=== PATIENT | male | born 1945 | race Caucasian/White ===

== ENCOUNTER → 2017-07-14 | Outpatient (CLI) | payer MEDICARE ==
--- NOTE | 2017-07-14 13:32 | CT ---
EXAMINATION TYPE: CT lumbar spine wo con DATE OF EXAM: 07/14/2017 COMPARISON: 06/11/2015 HISTORY: Low back pain CT DLP: 1000.[address] of the lumbar spine was performed. Bone and soft tissue window settings are submitted as well as coronal and sagittal reconstructions. L1-L2: Mild vacuum changes seen. Ventral spondylosis. No significant disc bulge. No herniation or tutu tral stenosis. L2-L3: Normal disc space height. No disc herniation protrusion or central stenosis. No facet joint arthropathy. No evidence for foraminal encroachment. L3-L4: Moderate degenerative disc space narrowing. Circumferential disc bulge greatest posteriorly. E ffacement of the ventral thecal sac. Mild central stenosis identified. Mild bilateral foraminal encro achment. L4-L5: Vacuum disc noted. Moderate subligamentous broad-based disc herniation. Effacement of the vent ral thecal sac with hypertrophy of the ligamentum flavum and facet joint arthropathy contributing to moderate to severe central stenosis. Bilateral foraminal encroachment noted. L5-S1: Moderate degenerative disc space narrowing. Posterior disc bulge with partial encapsulating sp ur resulting in disc endplate complex. Mild effacement ventral thecal sac. No central stenosis or lat eral recess stenosis. Mild facet joint arthropathy. No paraspinal masses are identified. Lumbar segments are free if fracture. Bilateral nephrolithiasis . IMPRESSION: 1. Multilevel degenerative disc disease. 2. Moderate to severe central stenosis L4-5 with mild interval progression. 3. Mild central stenosis at L3-4. See above.
== END | disposition home or self-care (01) ==
LOC: RADCTMAIN 12:57
PROVIDERS: ATTEND Physical Medicine & Rehabilitation
DX: M48.061 Spinal stenosis, lumbar region without neurogenic claudication (principal); M51.27 Other intervertebral disc displacement, lumbosacral region; M47.816 Spondylosis without myelopathy or radiculopathy, lumbar region
CPT/HCPCS: 72131

== ENCOUNTER → 2017-12-04 | Outpatient (CLI) | payer MEDICARE | END | disposition home or self-care (01) | LOC: LABWHC1 09:00 | PROVIDERS: ATTEND Internal Medicine Cardiovascular Disease | DX: I25.10 Atherosclerotic heart disease of native coronary artery without angina pectoris (principal) | CPT/HCPCS: 36415; 83704 ==

== ENCOUNTER → 2018-09-14 | Outpatient (CLI) | payer MEDICARE ==
[2018-09-14 11:45] LABS: Magnesium 1.7 mg/dL (1.6-2.3)
[2018-09-14 12:34] LABS: HCT 42.3 % (39.0-53.0); HGB 13.6 gm/dL (13.0-17.5); Hypochromasia Slight; MCH 27.3 pg (25.0-35.0); MCHC 32.2 g/dL (31.0-37.0); MCV 84.8 fL (80.0-100.0); Mean Platelet Volume 7.5; Platelet Count 162 k/uL (150-450); RBC 4.99 m/uL (4.30-5.90); RDW 14.7 % (11.5-15.5); WBC 5.2 k/uL (3.8-10.6)
== END | disposition home or self-care (01) ==
LOC: LABPAT 10:04
PROVIDERS: ATTEND Internal Medicine Interventional Cardiology
DX: Z01.812 Encounter for preprocedural laboratory examination (principal); I70.213 Atherosclerosis of native arteries of extremities with intermittent claudication, bilateral legs; I10 Essential (primary) hypertension
CPT/HCPCS: 36415; 82565; 83735; 84520; 85027

== ENCOUNTER 2018-09-17 07:26 | Day surgery (SDC) | payer MEDICARE ==
[2018-09-15 10:53] VITALS: BMI 31.7
[~2018-09-17 07:26] MED LIST: SODIUM CHLORIDE 0.9% 1,000 ML in EMPTY BAG 1 BAG IV ONE
[2018-09-17 07:47] VITALS: TEMP 98.1
[2018-09-17] MEDS ORDERED: MIDAZOLAM (PF) 2 MG/2 ML VIAL IV ONE (09:49)
[2018-09-17] MEDS ORDERED: LIDOCAINE 1% INJ 10MG/ML (20 ML MDV) SQ ONE (09:50)
[2018-09-17] MEDS ORDERED: IOPAMIDOL-250 100ML BTL INTRAARTER ONE (10:13)
[2018-09-17] MEDS ORDERED: IOPAMIDOL-250 50ML BTL INTRAARTER ONE (10:13)
[2018-09-17] MEDS ORDERED: SODIUM CHLORIDE 0.9% 1,000 ML IV SCH (10:15)
--- NOTE | 2018-09-17 10:48 | IR ---
EXAMINATION TYPE: IR angio abdominal w runoff DATE OF EXAM: 09/17/2018 CLINICAL HISTORY: Peripheral vascular disease TECHNIQUE: Fluoroscopy. COMPARISON: None. FINDINGS: Fluoroscopic guidance was provided during abdominal angiogram with lower extremity runoff procedure performed by Dr. Garcia. A total of 1.8 minute of fluoroscopic time was utilized during the procedure and 3 cine runs are acquired. Images acquired show access via right groin with runoff image s through bilateral lower extremities, clips from venous harvesting in the right lower extremity are noted. IMPRESSION: As Above.
--- NOTE | 2018-09-17 10:54 | AN ---
ANGIOGRAPHY REPORT ABDOMINAL AORTOGRAM AND BILATERAL LOWER EXTREMITY RUNOFF: DATE OF SERVICE: 09/17/2018 PERFORMING PHYSICIAN: Hansel Garcia MD, Recorder Of Deeds. PROCEDURE PERFORMED: 1. Abdominal aortogram. 2. Bilateral lower extremities runoff. INDICATION: This is a very pleasant 72-year-old gentleman who sees Dr. Garibay in the office as an outpatient and sees Dr. Mazariegos as well as the primary care physician who is known to have peripheral arterial disease, where in 2016 he underwent atherectomy and balloon angioplasty of the right common femoral artery and left SFA. Was seen in the office recently for right leg intermittent claudication. Because of that, an angiogram was advised. APPROACH: Left common femoral artery. COMPLICATION: None. LEVEL OF SEDATION: Moderate with sedation length of 15 minutes. PROCEDURE DESCRIPTION: After obtaining an informed consent, the patient was brought to the cardiac geophysical laboratory supervisor. The left common femoral artery was cannulated using micropuncture technique and a micropuncture wire passed easily, then I placed a 4-[place] sheath in the left common femoral artery. After that, I did an abdominal aortogram and bilateral lower extremities runoff using a 4-[place] pigtail catheter which was initially placed at the level of the renal arteries and it was pulled into above the bifurcation of the aorta to right and left common iliac arteries. The procedure was completed without any complication. SELECTIVE PERIPHERAL ANGIOGRAM: 1. The aorta appeared to be angiographically normal. 2. Common iliac arteries both are angiographically normal. 3. Internal iliac arteries both are patent. 4. External iliac arteries, both are angiographically normal. 5. Common femoral artery: The right common femoral artery has eccentric lesion appeared to be in the range of 50% only and the left common femoral artery appeared to be angiographically normal. 6. Profunda: Both profunda are patent. 7. SFA: Both SFA are patent, the left SFA stent is patent as well. 8. Popliteal: The right popliteal has a lesion appeared to be in the range of 80% and the left popliteal appeared to have intermediate disease only. 9. Below the knee: There are 3 vessel runoff below the knee on the right side. The tibioperoneal trunk has a critical lesion, appeared to be in the range of 99.9%. On the left side, there is 1 vessel runoff with peroneal only. CONCLUSION: 1. Intermediate eccentric calcified plaque involving the right common femoral artery, appeared to be in the range of 50% only angiographically. 2. Critical disease involving the right popliteal. 3. Critical disease involving the tibioperoneal trunk. POSTPROCEDURE MANAGEMENT: The patient will be scheduled to undergo a CHANNEL PROCESS SUPERVISOR of the right popliteal as well as tibioperoneal trunk. VENESSA / ZACHN: [id number] /
[2018-09-17 11:53] VITALS: RESP 18
[2018-09-17 13:14] VITALS: BP 137/64; PULSE 55
== END 2018-09-17 14:55 | disposition home or self-care (01) ==
LOC: CATHCVL 07:26
PROVIDERS: ATTEND Internal Medicine Interventional Cardiology
DX: I70.213 Atherosclerosis of native arteries of extremities with intermittent claudication, bilateral legs (principal); I10 Essential (primary) hypertension; I25.10 Atherosclerotic heart disease of native coronary artery without angina pectoris; E78.2 Mixed hyperlipidemia; Z82.49 Family history of ischemic heart disease and other diseases of the circulatory system; I25.2 Old myocardial infarction; Z95.1 Presence of aortocoronary bypass graft; Z79.02 Long term (current) use of antithrombotics/antiplatelets; Z79.899 Other long term (current) drug therapy; Z79.01 Long term (current) use of anticoagulants
CPT/HCPCS: 36200; 75625; 75716; C1769 ×4; C1894; J2001; Q9966 ×2; J2250

== ENCOUNTER → 2018-10-25 | Outpatient (CLI) | payer MEDICARE ==
[2018-10-25 09:54] LABS: HCT 42.2 % (39.0-53.0); HGB 13.2 gm/dL (13.0-17.5); MCH 27.3 pg (25.0-35.0); MCHC 31.4 g/dL (31.0-37.0); MCV 86.9 fL (80.0-100.0); Mean Platelet Volume 6.8; Platelet Count 157 k/uL (150-450); RBC 4.85 m/uL (4.30-5.90); RDW 14.5 % (11.5-15.5); WBC 4.8 k/uL (3.8-10.6)
[2018-10-25 10:01] LABS: Potassium 4.4 mmol/L (3.5-5.1)
== END | disposition home or self-care (01) ==
LOC: LABPAT 09:14
PROVIDERS: ATTEND Internal Medicine Interventional Cardiology
DX: Z01.812 Encounter for preprocedural laboratory examination (principal); I70.213 Atherosclerosis of native arteries of extremities with intermittent claudication, bilateral legs
CPT/HCPCS: 80051; 82565; 84520; 85027

== ENCOUNTER 2018-10-27 10:35 | Day surgery (SDC) | payer MEDICARE ==
[2018-10-25 08:35] VITALS: BMI 31.7
[2018-10-27] MEDS ORDERED: ASPIRIN 325 MG TAB ONE (10:54)
[2018-10-27] MEDS ORDERED: SODIUM CHLORIDE 0.9% 1,000 ML IV ONE (11:05)
[2018-10-27] MEDS ORDERED: MIDAZOLAM (PF) 2 MG/2 ML VIAL IV ONE (13:00)
[2018-10-27] MEDS ORDERED: LIDOCAINE 1% INJ 10MG/ML (20 ML MDV) SQ ONE (13:16)
[2018-10-27] MEDS ORDERED: fentaNYL (PF) 50 MCG/ML 2 ML AMP IVP ONE (13:18)
[2018-10-27] MEDS ORDERED: HEPARIN SODIUM 1,000 UN/ML (10ML VL) IV ONE (13:22)
[2018-10-27] MEDS ORDERED: NITROGLYCERIN 1000MCG/10ML SYRINGE INTRAARTER ONE (13:58)
[2018-10-27] MEDS: niCARdipine Syringe (1,000 mcg/10 mL) INTRAARTER ONE ×2 (13:59→14:09)
[2018-10-27] MEDS ORDERED: IOPAMIDOL-250 100ML BTL INTRAARTER ONE (14:15)
[2018-10-27] MEDS ORDERED: ACETAMINOPHEN TAB 325 MG TAB PO PRN (14:23)
[2018-10-27] MEDS ORDERED: CLOPIDOGREL 75 MG TAB PO ONE (14:29)
[2018-10-27] MEDS ORDERED: SODIUM CHLORIDE 0.9% 1,000 ML IV SCH (14:30)
--- NOTE | 2018-10-27 14:31 | IR ---
EXAMINATION TYPE: IR ship captain femoral popliteal DATE OF EXAM: 10/27/2018 COMPARISON: NONE HISTORY: Fluoroscopy time. Fluoroscopy was provided to the referring clinician.
[2018-10-27 17:33] LABS: Basophils % (A) 1 %; Eosinophils # (A) 0.2 k/uL (0-0.7); Eosinophils % (A) 4 %; HGB 12.3 gm/dL (13.0-17.5); Lymphocytes # (A) 0.9 k/uL (1.0-4.8); Lymphocytes % (A) 23 %; MCH 27.8 pg (25.0-35.0); MCHC 32.3 g/dL (31.0-37.0); MCV 86.1 fL (80.0-100.0); Mean Platelet Volume 7.3; Monocytes # (A) 0.3 k/uL (0-1.0); Monocytes % (A) 8 %; Neutrophils # (A) 2.4 k/uL (1.3-7.7); Neutrophils % (A) 61 %; Platelet Count 132 k/uL (150-450); RBC 4.42 m/uL (4.30-5.90); RDW 14.5 % (11.5-15.5)
[2018-10-27 17:53] LABS: Calcium 8.7 mg/dL (8.4-10.2); Potassium 4.2 mmol/L (3.5-5.1)
--- NOTE | 2018-10-27 18:55 | LTR ---
DATE OF SERVICE: October 27, 2018. Dear Jada: Mr. Mickey Greer underwent successful balloon angioplasty of the right tibioperoneal trunk, right popliteal with an excellent angiographic results and without any complication. I want to thank you for allowing us to participate in his care and please do not hesitate to call if you have any questions or concerns. Sincerely, MMJAVI / IJN: [id number] /
--- NOTE | 2018-10-27 19:14 | AN ---
ANGIOGRAPHY REPORT DATE OF SERVICE: October 27, 2018 PERFORMING PHYSICIAN: Hansel Garcia MD, prison guard. PROCEDURE PERFORMED: 1. Selective right txgll-tlw-[id number] angiogram. 2. Selective right popliteal/SFA angiogram. 3. Atherectomy of the right tibioperoneal trunk using the orbital atherectomy device. 4. Successful study atherectomy of the right popliteal artery using the using the orbital atherectomy device from [facility]. 5. Successful balloon angioplasty of the right tibioperoneal trunk as well as right popliteal. 6. Selective left common femoral artery angiogram. INDICATION: This is a 72-year-old gentleman who has history of peripheral arterial disease and prior peripheral revascularization, who was experiencing recently right leg intermittent claudication and underwent a peripheral angiogram which revealed severe disease involving the right popliteal as well as severe disease involving the right tibioperoneal trunk. He was brought today to undergo an intervention on both. APPROACH: Left common femoral artery. COMPLICATION: None. LEVEL OF SEDATION: Moderate with sedation length of 65 minutes. PROCEDURE DESCRIPTION: After obtaining an informed consent, the patient was brought to the cardiac quality assurance qa lab technician. The left common femoral artery was cannulated using micropuncture technique under ultrasound guidance, the micropuncture wire passed easily. Then I placed a 6-[place] sheath in the left common femoral artery. After that I did select the right SFA using 0.035 [place] Advantage wire with backup support of 5-[place] Rim catheter. After that, I did exchange my 11 cm 6-[place]izen [place] sheath into 70 cm 6-[place]izen [place] Raabe sheath using the 0.035 [place] Advantage wire and the sheath was positioned. The tip of the Raabe sheath was positioned in the proximal right SFA. At that point, anticoagulation was initiated using heparin and the patient was given 9000 units of heparin IV. After that, I did selective right ycuii-ujt-czar angiogram, right popliteal, and right SFA angiogram. The selective angiogram revealed two-vessel runoff below the knee with PT and peroneal with critical disease involving the right tibioperoneal trunk as well as severe disease involving the right popliteal. I decided to do atherectomy of the right popliteal and right tibioperoneal trunk. At that point, I did cross both lesions using a [address] wire with the wire positioned in the peroneal artery. After that, I did exchange my [address] wire into FiberWire. I did atherectomy of both lesions using the orbital atherectomy CSI. Then I did balloon angioplasty using a 4 mm for the tibioperoneal trunk and 7 mm for the right popliteal. The following angiogram showed excellent results and the procedure was completed without any complication. I did exchange my long sheath into short sheath using 035 advantage wire. I did selective left common femoral artery angiogram before I did close the groin using the Perclose device. The procedure was completed without any complication. POSTPROCEDURE MANAGEMENT: 1. Dual anti-platelet therapy. 2. Risk factors modifications. 3. Follow up with the patient. MMODL / IJN: [id number] /
[2018-10-27] MEDS ORDERED: EZETIMIBE 10 MG TAB PO SCH (21:00)
[2018-10-27] MEDS ORDERED: ATORVASTATIN 80 MG TAB PO SCH (21:00)
[2018-10-27] MEDS: METOPROLOL TARTRATE 25 MG TAB PO SCH (21:13)
[2018-10-28 07:05] LABS: Basophils % (A) 1 %; Eosinophils # (A) 0.2 k/uL (0-0.7); Eosinophils % (A) 5 %; HCT 36.2 % (39.0-53.0); HGB 12.3 gm/dL (13.0-17.5); Lymphocytes # (A) 0.5 k/uL (1.0-4.8); Lymphocytes % (A) 16 %; MCH 28.4 pg (25.0-35.0); MCHC 33.9 g/dL (31.0-37.0); Mean Platelet Volume 7.9; Monocytes # (A) 0.3 k/uL (0-1.0); Monocytes % (A) 9 %; Neutrophils # (A) 2.1 k/uL (1.3-7.7); Neutrophils % (A) 66 %; Platelet Count 117 k/uL (150-450); RBC 4.31 m/uL (4.30-5.90); RDW 14.5 % (11.5-15.5); WBC 3.2 k/uL (3.8-10.6)
[2018-10-28 07:10] LABS: Calcium 8.3 mg/dL (8.4-10.2); Potassium 4.2 mmol/L (3.5-5.1)
[2018-10-28] MEDS ORDERED: PANTOPRAZOLE 40 MG TABLET PO SCH (07:30)
[2018-10-28] MEDS: METOPROLOL TARTRATE 25 MG TAB PO SCH (08:46)
[2018-10-28] MEDS ORDERED: CLOPIDOGREL 75 MG TAB PO SCH (09:00)
[2018-10-28] MEDS ORDERED: SERTRALINE 50 MG TAB PO SCH (09:00)
[2018-10-28] MEDS ORDERED: LOSARTAN 50 MG TAB PO SCH (09:00)
[2018-10-28 09:21] VITALS: BP 163/83; PULSE 58; RESP 18; TEMP 97.9
--- NOTE | 2018-10-28 10:09 | DS ---
DISCHARGE SUMMARY ADMISSION DATE: 10/27/2018 DISCHARGE DATE: 10/28/2018 BRIEF HISTORY: This is a pleasant 72-year-old gentleman who underwent yesterday successful percutaneous peripheral intervention of the right popliteal and right tibioperoneal trunk with excellent angiographic results. On followup with him today, he is doing good and he is asymptomatic. The procedure was performed from the left groin which is soft and nontender and without any bruises. The patient is going to be discharged home on Plavix and Xarelto. No need for aspirin at this point. I will follow up with the patient in a week in the office. MMODL / IJN: [id number] /
== END 2018-10-28 10:23 | disposition home or self-care (01) ==
LOC: CATHCVL 10:35 → 3SCARD 15:45 → CATHCVL 10-28 10:23
PROVIDERS: ATTEND Internal Medicine Interventional Cardiology
DX: I70.211 Atherosclerosis of native arteries of extremities with intermittent claudication, right leg (principal); I10 Essential (primary) hypertension; E78.2 Mixed hyperlipidemia; I25.10 Atherosclerotic heart disease of native coronary artery without angina pectoris; I25.2 Old myocardial infarction; Z79.01 Long term (current) use of anticoagulants; Z79.02 Long term (current) use of antithrombotics/antiplatelets; Z79.899 Other long term (current) drug therapy; Z82.49 Family history of ischemic heart disease and other diseases of the circulatory system; Z95.1 Presence of aortocoronary bypass graft
CPT/HCPCS: 37225; 37229; 80048 ×2; 85025 ×2; C1894 ×2; C1714; C1769 ×5; C2623; C1760; C1725 ×2; J2001; J3010; J1644; Q9966; J2250

== ENCOUNTER → 2020-07-03 | Outpatient (CLI) | payer MEDICARE ==
--- NOTE | 2020-07-03 09:04 | CT ---
EXAMINATION TYPE: CT lumbar spine wo con DATE OF EXAM: 07/03/2020 COMPARISON: 07/14/2017 and 06/11/2015 HISTORY: 74-year-old male Lumbar radiculopathy TECHNIQUE: Contiguous axial scanning of the lumbar spine without IV contrast. Coronal and sagittal re constructions performed. CT DLP: 1057.30 mGycm Automated exposure control for dose reduction was used. FINDINGS: Moderate atherosclerotic calcifications infrarenal abdominal aorta. Bilateral parapelvic cysts are bermudez ggested. 1.2 cm nonobstructive calculus left kidney and 4 mm in the right kidney. Sigmoid diverticulo sis. Indeterminate 1.5 cm hypodense lesion posterior midpole left kidney with corresponding cortical lobul ation, unchanged from the 2016 exam. Moderately advanced degenerative disc disease L3-L4 and L4-L5. Residual broad-based disc bulge remain s at L4-L5 the smaller as compared to 2018. Mild overall spinal canal stenosis at this level along wi th the ligamentum flavum thickening and facet arthropathy. Otherwise, no joey canal compromise identified. Facet arthropathy mid to lower lumbar spine. On the left, changes result in moderate foraminal stenosis at L4-L5 and mild at L3-L4. On the right, changes result in moderate neuroforaminal stenosis at L3-L4 and L4-L5. Vertebral body heights are preserved. Alignment is maintained. IMPRESSION: 1. MODERATE TO ADVANCED DEGENERATIVE DISC DISEASE AT L3-L4 AND L4-L5 WITH CHANGES PROGRESSED ESPECIAL LY AT L3-L4 COMPARED TO 2018. 2. HOWEVER, THE OVERALL SIZE OF THE POSTERIOR DISC BULGE AT L4-L5 HAS DECREASED FROM 2018. THERE KARLOS INS MILD NARROWING OF THE SPINAL CANAL HERE. NO OTHER CANAL SIGNIFICANT CANAL STENOSIS IS SEEN. 3. HYPERTROPHIC FACET ARTHROPATHY. CHANGES RESULT IN MODERATE BILATERAL NEUROFORAMINAL STENOSES AT L4 -L5 AND MODERATE ON THE RIGHT AT L3-L4.
== END ==
LOC: RADCTMAIN 07:43
PROVIDERS: ATTEND Physical Medicine & Rehabilitation
DX: M51.16 Intervertebral disc disorders with radiculopathy, lumbar region (principal); M48.061 Spinal stenosis, lumbar region without neurogenic claudication; M47.26 Other spondylosis with radiculopathy, lumbar region; M99.73 Connective tissue and disc stenosis of intervertebral foramina of lumbar region
CPT/HCPCS: 72131

== ENCOUNTER → 2020-08-06 | Outpatient (CLI) | payer MEDICARE ==
[2020-08-06 12:47] VITALS: BP 146/84; PULSE 55; RESP 16; TEMP 98.1
--- NOTE | 2020-08-06 13:21 | P.PAINCN ---
History of Present Illness - Reason for Consult Consult date: 08/06/20 - History of Present Illness This is 73 years old male with a chronic history of severe low back pain, he was diagnosed with lumbar degenerative disc disease lumbar spondylosis and lumbar facet arthropathy, lumbar foraminal stenosis, she was treated at the [facility], and he had radiofrequency thermocoagulation of the median branch lumbar area, and he had more than 90% improvement of his low back pain, the last treatment was done in October 2019, and recently patient started having severe low back pain is localized in the low back area he denies any motor or sensory deficit, he denies any fever or night sweats, he uses Tylenol for pain when necessary Past Medical History Past Medical History: Coronary Artery Disease (CAD), Cancer, GERD/Reflux, Hyperlipidemia, Hypertension, Osteoarthritis (OA), Prostate Disorder, Vascular Disorder Additional Past Medical History / Comment(s): PAD, past hx. 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 cataracts bilaterally, left kidney surgery age 6, 12/15/14- abdominal aortogram,12/20/14 left balloon arthrectomy, left popliteal stent, 5 way bypass 2010, bile duct surg. for stone, pain procedure by Abdifatah in past w/good results Past Anesthesia/Blood Transfusion Reactions: No Reported Reaction Past Psychological History: Depression Additional Psychological History / Comment(s): Pt states he is depressed- please refer to depression risk screen. Pt denies thought or plan of suicide. Pt radha ves with his spouse of 49 Smoking Status: Never smoker Past Alcohol Use History: Occasional Past Drug Use History: None Reported - Past Family History Father Family Medical History: Cancer, CVA/TIA Mother Family Medical History: Cancer Medications and Allergies Home Medications Medication Instructions Recorded Confirmed Type Atorvastatin [Lipitor] 80 mg PO HS 12/14/14 08/01/20 History Losartan [Cozaar] 50 mg PO DAILY 12/14/14 08/01/20 History Metoprolol Tartrate 25 mg PO BID 12/14/14 08/01/20 History Pantoprazole Sodium 40 mg PO DAILY 12/14/14 08/01/20 History Sertraline [Zoloft] 50 mg PO DAILY 12/14/14 08/01/20 History Ezetimibe [Zetia] 10 mg PO HS 09/15/18 08/01/20 History Rivaroxaban [Xarelto] 2.5 mg PO BID 10/25/18 08/01/20 History Acetaminophen [Tylenol Arthritis] 1,300 mg PO DAILY PRN 08/01/20 08/01/20 History Aspirin 81 mg PO DAILY 08/01/20 08/01/20 History Allergies Allergy/AdvReac Type Severity Reaction Status Date / Time No Known Allergies Allergy Verified 08/01/20 14:27 Physical Exam Vitals: Vital Signs Temp Pulse Resp BP Pulse Ox 08/06/20 12:43 98.1 F 55 L 16 146/84 100 Physical Examinations : -Constitutiona : Cooperative , not in acute distress . -HEENT : nech : supple , no Lymphadenopathy , normal thyroid size . : eyes : no ptosis , no icterus, no photophobia . - neurologic : Cranial nerve II to XII intact , no focal neurological deffecit . -psychatric : alert , oriented X 3 , appropriate affect , intact judgment and insight . -Lymphatic : no Lymphadenopathy . - musculoskeltal : . Lumber spine moter stegnth lower extremities ,thigh and legs 5/5 Right side , 5/5 Left side deep tendon reflexes : normal Knee Jerk , normal ankle Jerk lumber facet Loading Test =positive Right , positive Left Range of motion of the lumbar spine Flexion 30 degrees, extension 10 degrees strait leg raising test = positive at 45 degree right side and is negative on the left side Fabere test= negative bilaterally moderate tenderness over the Sacroiliac joint on the Right , and Left sides y Results Comments: Computed tomography scan of the lumbar spine= lumbar foraminal stenosis, lumbar degenerative disc disease, lumbar facet arthropathy Assessment and Plan Plan: Assessment and plan=1-lumbar degenerative disc disease. 2-lumbar foraminal stenosis. 3-lumbar spondylosis with lumbar facet arthropathy. Patient had 90% improvement of his low back pain after RFA both medial branch lumbar area done in October 2019 Patient will be good candidate to have a repeat RFA of the medial branch lumbar area at L3, L4, L5, bilaterally Patient had to hold Xarelto for 3 days before the procedure ,We need to get project structural engineer's approval before we can proceed Time with Patient: Greater than 30 PQRS Measure Charge Sheet Measure #130: Documentation of Current Meds in Medical Chart: Patient's medications documented in chart Measure #226: Tobacco Use: Screen & Cessation Intervention: Pt not a tobacco user Measure #111: Pneumonia Vaccination: Pneumococcal vaccine NOT administered or previously given Measure #47: Advance Care Plan: Advance care planning discussed & documented, pt chose/unable to give Measure #412: Opioid Treatment Agreement: No documentation of signed opioid treatment agreement Measure #408: Opioid Therapy Follow-up Evaluation: Patient had NO f/u eval minimum every 3 months during opioid therapy Measure #317: Preventitive Care & Scrn High Bld Press & F/U: Pre-hypertensive or hypertensive BP documented, pt will f/u with PCP Measure #128: Body Mass Index (BMI) Screening & Follow-up: BMI documented ABOVE normal parameters - f/u documented Measure #131: Pain Assessment & Follow-up: Pain positive & plan documented, Follow-up scheduled Measure #431: Unhealthy Alcohol Use Preventative Care & Scrn: Patient not id entified as an unhealthy alcohol user PQRS Narrative: Smoking Status Never smoker Blood Pressure 146/84 Pain Intensity [Lower Back] 2 Scale Used Numeric (1 - 10) Hx Alcohol Use (MH) No Home Medications: Ambulatory Orders Atorvastatin [Lipitor] 80 mg PO HS 12/14/14 Losartan [Cozaar] 50 mg PO DAILY 12/14/14 Metoprolol Tartrate 25 mg PO BID 12/14/14 Pantoprazole Sodium 40 mg PO DAILY 12/14/14 Sertraline [Zoloft] 50 mg PO DAILY 12/14/14 Ezetimibe [Zetia] 10 mg PO HS 09/15/18 Rivaroxaban [Xarelto] 2.5 mg PO BID 10/25/18 Acetaminophen [Tylenol Arthritis] 1,300 mg PO DAILY PRN 08/01/20 Aspirin 81 mg PO DAILY 08/01/20
== END ==
LOC: PNWHC3 12:24
PROVIDERS: ATTEND Specialist
DX: M51.36 Other intervertebral disc degeneration, lumbar region (principal); M48.061 Spinal stenosis, lumbar region without neurogenic claudication; M47.816 Spondylosis without myelopathy or radiculopathy, lumbar region; I25.10 Atherosclerotic heart disease of native coronary artery without angina pectoris; K21.9 Gastro-esophageal reflux disease without esophagitis; E78.5 Hyperlipidemia, unspecified; I10 Essential (primary) hypertension; M19.90 Unspecified osteoarthritis, unspecified site; F32.9 Major depressive disorder, single episode, unspecified; Z79.82 Long term (current) use of aspirin; Z79.899 Other long term (current) drug therapy; Z95.1 Presence of aortocoronary bypass graft
CPT/HCPCS: 99211

== ENCOUNTER 2020-09-07 11:22 | Day surgery (SDC) | payer MEDICARE ==
[2020-09-05 14:16] VITALS: BMI 31.0
[~2020-09-07 11:22] MED LIST changes: +LACTATED RINGERS 1,000 ML IV SCH; -SODIUM CHLORIDE 0.9% 1,000 ML in EMPTY BAG 1 BAG IV ONE
[2020-09-07 11:49] VITALS: RESP 16; TEMP 98
[2020-09-07] MEDS ORDERED: LIDOCAINE 1% (10MG/ML) FOR IV START INTRADERMA ONE (12:00)
[2020-09-07] MEDS ORDERED: TRIAMCINOLONE ACETONIDE 40 MG/ML 1 ML VIAL ONE (12:58)
[2020-09-07] MEDS ORDERED: fentaNYL (PF) 50 MCG/ML 2 ML AMP ONE (12:58)
[2020-09-07] MEDS ORDERED: MIDAZOLAM 2 MG/2 ML VIAL ONE (12:58)
[2020-09-07] MEDS ORDERED: ROPIVACAINE 5MG/ML 20ML VIAL ONE (12:58)
--- NOTE | 2020-09-07 13:32 | P.PCN ---
Date of Procedure: 09/07/20 Procedure(s) Performed: PREOPERATIVE DIAGNOSIS: 1-Lumbar Spondylosis with Facet Arthropathy without myelopathy. 2- Lumber degenerative disc disease. POSTOPERATIVE DIAGNOSIS: 1- Lumbar Spondylosis with Facet Arthropathy without myelopathy. 2- Lumber degenerative disc disease. PROCEDURES : Bilateral Radiofrequency thermocoagulation, L3 , L4 , and L5 medial branch, with fluoroscopic guidance (fluoroscopy images available in the radiology department) ( to denervate the facet joint at bilateral L4-5 ,and L5-S1 levels ). ANESTHESIA: Monitored anesthesia care as per anesthesia department. EBL: Minimal PROCEDURE INDICATION: The patient with low back pain secondary to lumbar facet arthropathy who had more than 50% relief of her pain with previous diagnostic lumbar medial branch block with bupivacaine. PROCEDURE DESCRIPTION / TECHNIQUE: The patient was seen and identified in the preoperative area. Risks, benefits, complications, including but not limited to risk of infection ,bleeding , allergic reactions to the medications and no complete pain releife , and alternatives were discussed with the patient, the patient agreed to proceed with the procedure and signed the consent. IV was started. Vital signs remained stable throughout the procedure. Patient was taken to the OR and time out was completed. The patient was placed in the prone position on the procedure table. The lumber area was prepped and draped in the usual sterile fashion. . Vital signs were closely monitored during the procedure .IV sedation was used during the procedure to decrease patients anxiety. Using AP and then oblique fluoroscopy, the ``eye of the Obey dog corre sponding to the connection between the superior and transverse articular processes of right L3, L4, and L5 were identified, marked, and localized with 1% lidocaine. Subsequently, a 18 -nz ( VENUM ) radiofrequency cannula with a 10-mm active tip was advanced guided by fluoroscopy to each of the``eyes of the Obey dog at right L3, L4, and L5. Each site then underwent sensory testing at 50 Hz and 0 to 1 volt and motor testing at 2.5 Hz and 0 to 3 volt with local stimulation, but no radicular symptoms down the legs. Thereafter each sites underwent radiofrequency thermocoagulation at 80 degrees celsius for 90 seconds after injecting 0.5 ml of PF Ropivacaine 1ml, then after the thermocoagulation done , 1 ml of the block solution containing Kenalog 20 mg and 3 ml of Ropivacaine 0.5% was injected at the right L3 , L4 , and L5 , levels after negative aspiration of CSF and blood and with no paresthesias. Cannulas were retracted while injecting lidocaine 1% until the needle is out. The same procedure was repeated at the level of Left L3, L4, and L5 levels. At the end of the procedure, the skin was cleansed and bandages were applied. COMPLICATIONS: No acute complications. DISPOSITION / PLANS: The patient was placed in a supine position and transferred to the recovery area in a stable condition for observation and was discharged from the recovery room after meeting discharge criteria. Home discharge instructions given to the patient by the staff. The patient was reexamined prior to discharge. The patient will schedule a follow up in the clinic in 2-4 weeks.
[2020-09-07] MEDS ORDERED: IV FLUID CONTINUATION 300 ML IV ONE (13:37)
[2020-09-07 13:59] VITALS: BP 113/67; PULSE 52
--- NOTE | 2020-09-07 14:56 | FL ---
Fluoroscopy HISTORY: Pain 16 seconds fluoroscopy time supplied to the referring clinician. 6 intraoperative C-arm images docum ent the procedure. See dictated report from anesthesia.
== END 2020-09-07 14:17 | disposition home or self-care (01) ==
LOC: ORPAIN 11:22
PROVIDERS: ATTEND Specialist
DX: M47.816 Spondylosis without myelopathy or radiculopathy, lumbar region (principal); M51.36 Other intervertebral disc degeneration, lumbar region; I25.10 Atherosclerotic heart disease of native coronary artery without angina pectoris; I10 Essential (primary) hypertension; E78.5 Hyperlipidemia, unspecified; Z85.46 Personal history of malignant neoplasm of prostate; K21.9 Gastro-esophageal reflux disease without esophagitis; Z79.899 Other long term (current) drug therapy; Z79.82 Long term (current) use of aspirin; Z79.01 Long term (current) use of anticoagulants
CPT/HCPCS: 64635; 64636; J2250; J3301; J3010; J2795

== ENCOUNTER → 2020-10-01 | Outpatient (CLI) | payer MEDICARE ==
[2020-10-01 14:31] VITALS: BP 149/80; PULSE 57; RESP 16; TEMP 98.2
--- NOTE | 2020-10-01 15:53 | P.PN ---
Progress Note - Text Progress Note Date: 10/01/20 This is a follow-up visit for this 74 years old male with a chronic history of severe low back pain is diagnosed with lumbar spondylosis and lumbar facet arthropathy, recently we did refill of the medial branch lumbar area patient reported that his pain improves completely ,has 0 pain in his activity of daily livings improved significantly he denies any motor or sensory deficit, he denies any pain, and will follow up in the pain clinic when necessary
== END ==
LOC: PNWHC3 13:48
PROVIDERS: ATTEND Specialist
DX: M47.816 Spondylosis without myelopathy or radiculopathy, lumbar region (principal)
CPT/HCPCS: 99211

== ENCOUNTER → 2021-04-05 | Outpatient (CLI) | payer MEDICARE ==
[2021-04-05 12:06] LABS: HCT 38.9 % (39.0-53.0); HGB 12.5 gm/dL (13.0-17.5); Hypochromasia Slight; MCH 28.1 pg (25.0-35.0); MCHC 32.1 g/dL (31.0-37.0); MCV 87.4 fL (80.0-100.0); Mean Platelet Volume 7.5; Platelet Count 168 k/uL (150-450); RBC 4.45 m/uL (4.30-5.90); RDW 13.9 % (11.5-15.5); WBC 4.6 k/uL (3.8-10.6)
[2021-04-05 12:23] LABS: Potassium 5.1 mmol/L (3.5-5.1)
== END | disposition home or self-care (01) ==
LOC: LABPAT 10:37
PROVIDERS: ATTEND Internal Medicine Interventional Cardiology
DX: Z01.812 Encounter for preprocedural laboratory examination (principal); I73.9 Peripheral vascular disease, unspecified
CPT/HCPCS: 36415; 80051; 82565; 84520; 85027

== ENCOUNTER 2021-04-10 08:19 | Day surgery (SDC) | payer MEDICARE ==
[2021-04-08 16:03] VITALS: BMI 31.0
[~2021-04-10 08:19] MED LIST changes: +ALPRAZolam 0.25 MG TAB PO PRN; +ALPRAZolam 0.5 MG TAB PO PRN; +ASPIRIN 325 MG TAB PO PRN; +HEPARIN SODIUM,PORCINE 10,000 UNIT in SODIUM CHLORIDE 0.9% 1,000 ML IRRIGATION PRN; +HEPARIN SODIUM,PORCINE 2,500 UNIT in SODIUM CHLORIDE 0.9% 250 ML IRRIGATION PRN; -LACTATED RINGERS 1,000 ML IV SCH; +SODIUM CHLORIDE 0.9% 1,000 ML in EMPTY BAG 1 BAG IV ONE; +ZOLPIDEM 5 MG TAB PO PRN
[2021-04-10] MEDS ORDERED: ASPIRIN 81 MG ONE (09:39)
[2021-04-10] MEDS ORDERED: SODIUM CHLORIDE 0.9% 1,000 ML IV ONE (10:21)
[2021-04-10] MEDS ORDERED: LIDOCAINE 1% INJ 10MG/ML (20 ML MDV) SQ ONE (11:40)
[2021-04-10] MEDS ORDERED: MIDAZOLAM 2 MG/2 ML VIAL IV ONE (11:40)
[2021-04-10] MEDS ORDERED: HEPARIN SODIUM 1,000 UN/ML (10ML VL) IV ONE (11:46)
[2021-04-10] MEDS: niCARdipine Syringe (1,000 mcg/10 mL) IV ONE ×3 (12:00→13:05)
[2021-04-10] MEDS ORDERED: fentaNYL (PF) 50 MCG/ML 5 ML AMP IV ONE (12:14)
[2021-04-10] MEDS: NITROGLYCERIN 1000MCG/10ML SYRINGE INTRAARTER ONE ×2 (12:44→13:05)
[2021-04-10] MEDS ORDERED: ACETAMINOPHEN TAB 500 MG TAB PO PRN (13:20)
[2021-04-10] MEDS ORDERED: SODIUM CHLORIDE 0.9% 1,000 ML in EMPTY BAG 1 BAG IV SCH (13:30)
--- NOTE | 2021-04-10 13:37 | IR ---
Fluoroscopy HISTORY: Pain in left leg 22 minutes fluoroscopy time supplied to the referring clinician. 121 intraoperative C-arm images doc ument the procedure. See dictated report from cardiology.
--- NOTE | 2021-04-10 16:39 | AN ---
ANGIOGRAPHY REPORT DATE OF SERVICE: April 10, 2021. PERFORMING PHYSICIAN: Hansel Garcia MD. PROCEDURE PERFORMED: 1. Atherectomy of the left peroneal and left tibioperoneal trunk as well as left popliteal using the orbital atherectomy device. 2. Successful balloon angioplasty of the left peroneal, as well as left peroneal trunk and left popliteal. 3. Intravascular ultrasound (IVUS) of the left peroneal, as well as left tibioperoneal trunk and left popliteal. 4. Left lower extremity angiogram. 5. Right common femoral artery angiogram. 6. Ultrasound-guided access of the right common femoral artery. INDICATION: This is a very pleasant 75-year-old gentleman with coronary artery disease and peripheral arterial disease who was experiencing left leg intermittent claudication. He underwent a lower extremities arterial duplex study and that showed severe left pop disease. In light of that, he was advised to undergo an angiogram and possible intervention. APPROACH: Right common femoral artery. COMPLICATIONS: None. LEVEL OF SEDATION: Moderate, with sedation length of 91 minutes. PROCEDURE DESCRIPTION: After obtaining informed consent, the patient was brought to the cardiac lab tester. The right common femoral artery was cannulated using micropuncture technique under ultrasound guidance, the micropuncture wire passed easily. Then I placed a 6-Romanian sheath 70 cm sheath at the right common femoral artery under fluoroscopic guidance. At that point, anticoagulation was initiated using heparin [place] [id number] units of heparin IV with continuous ACT monitoring throughout the procedure. After that, I did select the left SFA using 0.035 stiff Glidewire with the backup support of 5-Romanian RIM catheter. Subsequently, I did advance the sheath over the wire and catheter all the way to the left SFA under fluoroscopic guidance of course. Left lower extremity angiogram was performed and revealed 1 vessel runoff below the knee with peroneal and severe disease involving the left anterior peroneal trunk as well as left popliteal confirmed by intravascular ultrasound IVUS. The left lower extremity angiogram revealed patent stent in the left SFA. After that, I did intervene on the left peroneal and left tibioperoneal trunk as well as left popliteal. The procedure was completed without any complication. ACOUSTICAL ENGINEER of the left peroneal as well as left tibioperoneal trunk and left popliteal. I did cross the chronic total occlusion of the left peroneal using 018 yu tip Glidewire with the backup support of 018 CXI catheter. I advanced the CXI catheter over the yu tip Glidewire to the left peroneal, and injected contrast to prove that I was in the true lumen. Subsequently I did place a 014 ViperWire in the CXI and I pulled the CXI out. After that, I did atherectomy of the left peroneal and TBT and peroneal using the 1.25 mm nona. After that, I did balloon angioplasty initially using 4 mm and subsequently 6 mm balloon. The final angiogram showed excellent angiographic results and the procedure was completed without any complication. After that, I did exchange my 70 cm sheath into 11 cm sheath using 0.035 stiff Glidewire. After that, I did selective right common femoral artery angiogram. The procedure was completed without any complication. POSTPROCEDURE MANAGEMENT: 1. Dual anti-platelet therapy. 2. Aggressive cholesterol control. 3. Risk factor modifications. 4. Possible discharge in the next 24-48 hours. MMODL / IJN: [id number] /
[2021-04-10] MEDS ORDERED: ATORVASTATIN 80 MG TAB PO SCH (21:00)
[2021-04-10] MEDS ORDERED: EZETIMIBE 10 MG TAB PO SCH (21:00)
[2021-04-10] MEDS: METOPROLOL TARTRATE 25 MG TAB PO SCH (22:31)
[2021-04-10 22:36] VITALS: RESP 18
[2021-04-11] MEDS ORDERED: HYDROmorphone 0.5 MG/0.5 ML SYRINGE IVP PRN (01:18)
[2021-04-11] MEDS: METOPROLOL TARTRATE 25 MG TAB PO SCH (08:27)
[2021-04-11] MEDS ORDERED: PANTOPRAZOLE 40 MG TABLET PO SCH (09:00)
[2021-04-11] MEDS ORDERED: SERTRALINE 50 MG TAB PO SCH (09:00)
[2021-04-11] MEDS ORDERED: LOSARTAN 50 MG TAB PO SCH (09:00)
[2021-04-11] MEDS ORDERED: ASPIRIN 81 MG PO SCH (09:00)
[2021-04-11 09:06] VITALS: BP 131/70; PULSE 52; TEMP 97.8
--- NOTE | 2021-04-11 10:27 | P.DS ---
Providers Date of admission: April 10 Attending physician: Hansel Garcia Primary care physician: Stated None Hospital Course: The patient is a pleasant 75-year-old gentleman with lower except his peripheral tear disease was experiencing severe left leg intermittent claudication. He underwent a Doppler study which revealed severe disease involving the left popliteal. He underwent yesterday a angiogram and that showed severe disease involving the left popliteal and left tibial peroneal trunk and left peroneal artery which is only artery. The patient underwent yesterday successful atherectomy and balloon angioplasty of the above arteries with an excellent angiographic results and without any complications from right groin approach. The right groin is soft and nontender and without any bruises. The patient is going to be discharged home. I will follow-up with him in a week Plan - Discharge Summary Discharge Rx Participant: No New Discharge Prescriptions: Continue Losartan [Cozaar] 50 mg PO DAILY Sertraline [Zoloft] 50 mg PO DAILY Pantoprazole Sodium 40 mg PO DAILY Metoprolol Tartrate 25 mg PO BID Atorvastatin [Lipitor] 80 mg PO HS Ezetimibe [Zetia] 10 mg PO HS Rivaroxaban [Xarelto] 2.5 mg PO BID Aspirin 81 mg PO DAILY Acetaminophen [Tylenol Arthritis] 1,300 mg PO DAILY PRN PRN Reason: Pain Discharge Medication List Atorvastatin [Lipitor] 80 mg PO HS 12/14/14 [History] Losartan [Cozaar] 50 mg PO DAILY 12/14/14 [History] Metoprolol Tartrate 25 mg PO BID 12/14/14 [History] Pantoprazole Sodium 40 mg PO DAILY 12/14/14 [History] Sertraline [Zoloft] 50 mg PO DAILY 12/14/14 [History] Ezetimibe [Zetia] 10 mg PO HS 09/15/18 [History] Rivaroxaban [Xarelto] 2.5 mg PO BID 10/25/18 [History] Acetaminophen [Tylenol Arthritis] 1,300 mg PO DAILY PRN 08/01/20 [History] Aspirin 81 mg PO DAILY 08/01/20 [History] Follow up Appointment(s)/Referral(s): Hansel Garcia MD [STAFF PHYSICIAN] - 1 Week
== END 2021-04-11 11:55 | disposition home or self-care (01) ==
LOC: CATHCVL 08:19 → 6NMEDSUR 13:10 → CATHCVL 04-11 11:55
PROVIDERS: ATTEND Internal Medicine Interventional Cardiology
DX: I70.212 Atherosclerosis of native arteries of extremities with intermittent claudication, left leg (principal); I70.92 Chronic total occlusion of artery of the extremities; E78.5 Hyperlipidemia, unspecified; I10 Essential (primary) hypertension; Z82.49 Family history of ischemic heart disease and other diseases of the circulatory system; I65.23 Occlusion and stenosis of bilateral carotid arteries; Z95.828 Presence of other vascular implants and grafts; Z79.82 Long term (current) use of aspirin; Z79.01 Long term (current) use of anticoagulants; Z79.899 Other long term (current) drug therapy; E78.2 Mixed hyperlipidemia; I25.2 Old myocardial infarction
CPT/HCPCS: 37225; 37229; 75710; 37252; 37253; 82565; 87635; C1894 ×3; C1769 ×5; C1714; C1753; C1725 ×2; J2250; J2001; J3010; J1644; J1170

== ENCOUNTER 2022-04-11 06:28 | Day surgery (SDC) | payer MEDICARE ==
[2022-04-09 15:28] VITALS: BMI 31.0
[~2022-04-11 06:28] MED LIST changes: -ALPRAZolam 0.25 MG TAB PO PRN; -ALPRAZolam 0.5 MG TAB PO PRN; -ASPIRIN 325 MG TAB PO PRN; -HEPARIN SODIUM,PORCINE 10,000 UNIT in SODIUM CHLORIDE 0.9% 1,000 ML IRRIGATION PRN; -HEPARIN SODIUM,PORCINE 2,500 UNIT in SODIUM CHLORIDE 0.9% 250 ML IRRIGATION PRN; +LACTATED RINGERS 1,000 ML IV SCH; +LIDOCAINE 1% (10MG/ML) FOR IV START INTRADERMA PRN; -SODIUM CHLORIDE 0.9% 1,000 ML in EMPTY BAG 1 BAG IV ONE; -ZOLPIDEM 5 MG TAB PO PRN
[2022-04-11 07:11] VITALS: TEMP 96.9
[2022-04-11] MEDS ORDERED: LIDOCAINE 2% INJ 20 MG/ML (2 ML VIAL) ONE (07:57)
[2022-04-11] MEDS ORDERED: ONDANSETRON 4 MG/2 ML VIAL ONE (07:57)
[2022-04-11] MEDS ORDERED: PROPOFOL 10 MG/ML 20 ML VIAL IV ONE (07:57)
--- NOTE | 2022-04-11 08:26 | P.PCN ---
Date of Procedure: 04/11/22 Procedure(s) Performed: Brief history: Patient is a pleasant 76-year-old white male scheduled for an elective upper endoscopy as well as colonoscopy as a part of evaluation of iron deficiency anemia. He denies any GI symptoms. Last colonoscopy was 10 years ago. Procedure performed: Esophagogastroduodenoscopy with biopsy Colonoscopy Preoperative diagnosis: Iron deficiency anemia Anesthesia: [facility] [place] Procedure: After informed consent was obtained from the patient was brought into the endoscopy unit and IV sedation was administered by anesthesia under continuous monitoring. Initially upper endoscopy was done. The Olympus GF 160 video endoscope was inserted inserted into the mouth and esophagus intubated without any difficulty and was gradually advanced into the stomach and duodenum and carefully examined. The bulb and second part of the duodenum appeared normal. The scope was then withdrawn into the stomach adequately insufflated with air and upon careful examination the antrum had multiple linear telangiectasia is consistent with gastric antral vascular ectasia and argon plasma coag ablation was performed. Mucosa of the body, cardia and fundus appeared normal. The scope was then withdrawn into the esophagus. The GE junction was located at 40 cm to the incisors. It appeared irregular with no erythema erosions or ulcerations. was a 1 cm length of Groves's appearing mucosa proximal to the GE junction which was biopsied. Rest of the esophagus appeared normal. Patient tolerated the procedure well. At this time the patient continued to remain sedation. Initial digital rectal examination was normal. Olympus CF 160 video colonoscope was then inserted into the rectum and gradually advanced to the cecum without any difficulty. Careful examination was performed as the scope was gradually being withdrawn. The prep was excellent. The cecum, ascending colon, appeared normal. There were scattered diverticulosis noted in the right colon. In the transverse colon there was a 3 mm polyp that was removed by cold biopsy. In the descending colon there was a 5 mm polyp removed by cold biopsy. Rest of the transverse colon, descending colon, sigmoid colon and rectum appeared normal. Retroflexion was performed in the rectum and no lesions were noted. Patient tolerated the procedure well. Impression: 1. 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 He was advised to continue with iron supplements daily. Resume Xarelto today. Monitor CBC repeated basis. Follow with the office in 6 weeks
[2022-04-11 08:32] VITALS: RESP 16
[2022-04-11 08:49] VITALS: BP 120/70; PULSE 70
== END 2022-04-11 09:41 | disposition home or self-care (01) ==
LOC: ORWHC2ENDO 06:28
PROVIDERS: ATTEND Internal Medicine Gastroenterology
DX: D12.3 Benign neoplasm of transverse colon (principal); D12.4 Benign neoplasm of descending colon; D72.820 Lymphocytosis (symptomatic); K57.30 Diverticulosis of large intestine without perforation or abscess without bleeding; K22.70 Barrett's esophagus without dysplasia; K31.819 Angiodysplasia of stomach and duodenum without bleeding; D50.9 Iron deficiency anemia, unspecified; I78.1 Nevus, non-neoplastic; K44.9 Diaphragmatic hernia without obstruction or gangrene; K21.9 Gastro-esophageal reflux disease without esophagitis; I25.10 Atherosclerotic heart disease of native coronary artery without angina pectoris; I10 Essential (primary) hypertension; E78.5 Hyperlipidemia, unspecified; I48.91 Unspecified atrial fibrillation; I73.9 Peripheral vascular disease, unspecified; G43.909 Migraine, unspecified, not intractable, without status migrainosus; N40.0 Benign prostatic hyperplasia without lower urinary tract symptoms; Z87.438 Personal history of other diseases of male genital organs; Z79.01 Long term (current) use of anticoagulants; Z79.02 Long term (current) use of antithrombotics/antiplatelets; Z79.82 Long term (current) use of aspirin; Z79.899 Other long term (current) drug therapy; Z79.811 Long term (current) use of aromatase inhibitors; Z79.1 Long term (current) use of non-steroidal anti-inflammatories (NSAID); Z95.1 Presence of aortocoronary bypass graft; Z98.890 Other specified postprocedural states
CPT/HCPCS: 88305; 45380; 43239; 43270; J2405; J2704; J2001

== ENCOUNTER → 2022-05-22 | Outpatient (CLI) | payer MEDICARE ==
[2022-05-22 18:21] LABS: Basophils # (A) 0.04 X 10*3/uL (0.00-0.10); Eosinophils # (A) 0.22 X 10*3/uL (0.04-0.35); Eosinophils % (A) 5.8 %; HCT 44.4 % (39.6-50.0); HGB 13.5 g/dL (13.0-17.0); Immature Grans, Automated 1.3 %; Lymphocytes # (A) 0.68 X 10*3/uL (0.90-5.00); Lymphocytes % (A) 17.8 %; MCH 27.4 pg (27.0-32.0); MCHC 30.4 g/dL (32.0-37.0); MCV 90.2 fL (80.0-97.0); Mean Platelet Volume 10.3 fL (9.5-12.2); Monocytes # (A) 0.45 X 10*3/uL (0.20-1.00); Monocytes % (A) 11.8 %; NRBC Per 100 WBC 0 /100 WBCS (0.0-0.0); Neutrophils # (A) 2.38 X 10*3/uL (1.80-7.70); Neutrophils % (A) 62.3 %; Platelet Count 148 X 10*3/uL (140-440); RBC 4.92 X 10*6/uL (4.40-5.60); RDW 14.6 % (11.5-14.5); WBC 3.82 X 10*3/uL (4.50-10.00)
[2022-05-22 19:02] LABS: % Iron Saturation 29.81 (15.00-50.00)
[2022-05-22 21:27] LABS: Gliadin AB IgA, Deaminated NEGATIVE (NEGATIVE); Gliadin AB IgA, Unit <0.2 U/mL; Gliadin AB IgG, Deaminated NEGATIVE (NEGATIVE); Gliadin AB IgG, Unit <0.4 U/mL
== END | disposition home or self-care (01) ==
LOC: LABWHC1 11:03
PROVIDERS: ATTEND Internal Medicine Gastroenterology
DX: D50.9 Iron deficiency anemia, unspecified (principal)
CPT/HCPCS: 36415; 82728; 83516; 83540; 83550; 85025

== ENCOUNTER → 2022-07-25 | Outpatient (CLI) | payer MEDICARE ==
[2022-07-25 20:13] LABS: Basophils # (A) 0.05 X 10*3/uL (0.00-0.10); Basophils % (A) 1.2 %; Eosinophils % (A) 4.9 %; HCT 43.1 % (39.6-50.0); HGB 13.5 g/dL (13.0-17.0); Immature Grans, Automated 1.9 %; MCH 27.8 pg (27.0-32.0); MCHC 31.3 g/dL (32.0-37.0); MCV 88.7 fL (80.0-97.0); Mean Platelet Volume 10.6 fL (9.5-12.2); Monocytes # (A) 0.52 X 10*3/uL (0.20-1.00); Monocytes % (A) 12.7 %; NRBC Per 100 WBC 0 /100 WBCS (0.0-0.0); Neutrophils # (A) 2.56 X 10*3/uL (1.80-7.70); Neutrophils % (A) 62.3 %; Platelet Count 154 X 10*3/uL (140-440); RBC 4.86 X 10*6/uL (4.40-5.60); RDW 13.4 % (11.5-14.5); WBC 4.11 X 10*3/uL (4.50-10.00)
[2022-07-25 20:39] LABS: % Iron Saturation 26.98 (15.00-50.00)
[2022-07-26 06:19] LABS: Gliadin AB IgA, Deaminated NEGATIVE (NEGATIVE); Gliadin AB IgA, Unit <0.2 U/mL
== END | disposition home or self-care (01) ==
LOC: LABWHC1 11:42
PROVIDERS: ATTEND Internal Medicine Gastroenterology
DX: D50.9 Iron deficiency anemia, unspecified (principal)
CPT/HCPCS: 36415; 82728; 83516; 83540; 83550; 85025

== ENCOUNTER 2022-08-01 08:41 | Day surgery (SDC) | payer MEDICARE ==
[~2022-08-01 08:41] MED LIST changes: -LACTATED RINGERS 1,000 ML IV SCH
[2022-08-01] MEDS ORDERED: LACTATED RINGERS 1,000 ML IV ONE (08:57)
[2022-08-01 09:04] VITALS: TEMP 98.1
[2022-08-01] MEDS ORDERED: MIDAZOLAM 2 MG/2 ML VIAL ONE (09:55)
[2022-08-01] MEDS ORDERED: ROPIVACAINE 5 MG/ML 20 ML AMPULE ONE (09:55)
[2022-08-01] MEDS ORDERED: fentaNYL (PF) 50 MCG/ML 2 ML AMP ONE (09:55)
[2022-08-01] MEDS ORDERED: methylPREDNISolone ACETATE 40 MG/ML 1 ML VIAL ONE (09:55)
--- NOTE | 2022-08-01 10:22 | P.PCN ---
Date of Procedure: 08/01/22 Procedure(s) Performed: PREOPERATIVE DIAGNOSIS: 1-Lumbar Spondylosis with Facet Arthropathy without myelopathy. 2- Lumber degenerative disc disease. POSTOPERATIVE DIAGNOSIS: 1- Lumbar Spondylosis with Facet Arthropathy without myelopathy. 2- Lumber degenerative disc disease. PROCEDURES : Bilateral Radiofrequency thermocoagulation, L3 , L4 , and L5 medial branch, with fluoroscopic guidance (fluoroscopy images available in the radiology department) ( to denervate the facet joint at bilateral L4-5 ,and L5-S1 levels ). ANESTHESIA: Monitored anesthesia care as per anesthesia department. EBL: Minimal PROCEDURE INDICATION: The patient with low back pain secondary to lumbar facet arthropathy who had more than 50% relief of her pain with previous diagnostic lumbar medial branch block with bupivacaine. PROCEDURE DESCRIPTION / TECHNIQUE: The patient was seen and identified in the preoperative area. Risks, benefits, complications, including but not limited to risk of infection ,bleeding , allergic reactions to the medications and no complete pain releife , and alternatives were discussed with the patient, the patient agreed to proceed with the procedure and signed the consent. IV was started. Vital signs remained stable throughout the procedure. Patient was taken to the OR and time out was completed. The patient was placed in the prone position on the procedure table. The lumber area was prepped and draped in the usual sterile fashion. . Vital signs were closely monitored during the procedure .IV sedation was used during the procedure to decrease patients anxiety. Using AP and then oblique fluoroscopy, the ``eye of the Obey dog joe esponding to the connection between the superior and transverse articular processes of right L3, L4, and L5 were identified, marked, and localized with 1% lidocaine. Subsequently, a 18 -bg ( VENUM ) radiofrequency cannula with a 10-mm active tip was advanced guided by fluoroscopy to each of the``eyes of the Obey dog at right L3, L4, and L5. Each site then underwent sensory testing at 50 Hz and 0 to 1 volt and motor testing at 2.5 Hz and 0 to 3 volt with local stimulation, but no radicular symptoms down the legs. Thereafter each sites underwent radiofrequency thermocoagulation at 80 degrees celsius for 90 seconds after injecting 0.5 ml of PF Ropivacaine 1ml, then after the thermocoagulation done , 1 ml of the block solution containing Kenalog 20 mg and 3 ml of Ropivacaine 0.5% was injected at the right L3 , L4 , and L5 , levels after negative aspiration of CSF and blood and with no paresthesias. Cannulas were retracted while injecting lidocaine 1% until the needle is out. The same procedure was repeated at the level of Left L3, L4, and L5 levels. At the end of the procedure, the skin was cleansed and bandages were applied. COMPLICATIONS: No acute complications. DISPOSITION / PLANS: The patient was placed in a supine position and transferred to the recovery area in a stable condition for observation and was discharged from the recovery room after meeting discharge criteria. Home discharge instructions given to the patient by the staff. The patient was reexamined prior to discharge. The patient will schedule a follow up in the clinic in 2-4 weeks.
[2022-08-01] MEDS: LACTATED RINGERS 1,000 ML IV SCH ×2 (10:28→10:56)
[2022-08-01 10:29] VITALS: RESP 16
--- NOTE | 2022-08-01 10:33 | FL ---
EXAMINATION TYPE: FL guided pain mgmt statistic DATE OF EXAM: 08/01/2022 HISTORY: Fluoroscopy time .14257 DAP fluoroscopy provided. IMPRESSION: 1. Fluoroscopy time.
[2022-08-01 10:41] VITALS: BP 137/71; PULSE 60
== END 2022-08-01 11:02 | disposition home or self-care (01) ==
LOC: ORPAIN 08:41
PROVIDERS: ATTEND Specialist
DX: M51.36 Other intervertebral disc degeneration, lumbar region (principal); M47.816 Spondylosis without myelopathy or radiculopathy, lumbar region; I10 Essential (primary) hypertension; E78.5 Hyperlipidemia, unspecified; I25.10 Atherosclerotic heart disease of native coronary artery without angina pectoris; N40.0 Benign prostatic hyperplasia without lower urinary tract symptoms; K21.9 Gastro-esophageal reflux disease without esophagitis; Z79.01 Long term (current) use of anticoagulants; Z79.84 Long term (current) use of oral hypoglycemic drugs; Z79.82 Long term (current) use of aspirin; Z79.899 Other long term (current) drug therapy
CPT/HCPCS: 64635; 64636 ×2; J2250; J1030; J3010; J2795

== ENCOUNTER → 2022-08-20 | Outpatient (CLI) | payer MEDICARE ==
[2022-08-20 11:12] VITALS: BP 133/77; PULSE 54; RESP 18; TEMP 98.2
--- NOTE | 2022-08-20 14:35 | P.PAINPG ---
PQRS Measure Charge Sheet Comment: A 76 yr old male with a history of severe and chronic LBP secondary to lumbar DDD and spondylosis with facet arthropathy without myelopathy presents today for evaluation s/p BL RFA L4-L5, L5-S1. Pt states he experienced 95 % pain relief s/p procedure. Pain level is provoked at 1 /10 in intensity, constant, localized in the lumbar spine, dull in character w/o shooting pain. Pain is provoked by weight bearing activity. Pain is alleviated with injections. Interventional pain procedures completed include BL RFA L3-L5 (Jul 2022) Patient is currently on Denies Patient denies any side effects of the medication(s), denies excessive drowsiness or sleepiness, denies suicidal ideation and reports that the current pain medication is helping to control the pain and improve activities of daily living. Patient denies any motor or sensory deficits. Patient denies any fever or night sweats, denies any change in the bowel movements or urination. Physical Examination: -Constitutional: Cooperative. Not in acute distress . - Neurologic: Cranial nerve II to XII intact. No focal neurological deficits. - Psychatric: Alert & oriented x 3. Matching mood & appropriate affect. Judgment and insight intact. - Musculoskeletal: Cervical spine: Muscle bulk/ tone/ strength in the bilateral upper extremities normal Vertebral body tenderness to palpation over Spurling test positive Distraction test positive Facet loading test positive TTP Thoracic spine Muscle bulk / tone/ strength in the bilateral paraspinal muscles normal Vertebral body tender to palpation over Facet loading test positive TTP Lumbar spine: Motor bulk/ tone/ strength lower extremities , thigh and legs : 5/5 Deep tendon reflexes : Normal Knee Jerk. Normal Ankle Jerk . Vertebral body tenderness to palpation over Lumbar Facet Loading Test positive Straight Leg Raise: positive at 30 degrees right side/ left side Gaenslen's Test positive Sacral spine : Severe tenderness over the Sacroiliac joint: right side / left side Range of motion: Flexion of the lumbar spine <60 degrees Range of motion: Extension of the lumbar spine <20 degrees Gaenslen's Test positive right side / left side Mirian test: positive right side / left side Thigh Thrust Test positive right side / left side Sacral Thrust Test positive right side / left side Assessment and plan: Chronic LBP secondary to lumbar DDD, spondylosis with facet arthropathy without myelopathy Pt exhibited sufficient and substantial pain relief s/p RFA procedure. He may return to the clinic on an as needed basis. All questions answered. I have spent less than 30 minutes on patient care today. Dr Garcia was available by phone for the evaluation of this patient. The time was used to review the medical records including relevant urine studies and Prescription history (MAPs), review of the available imaging, evaluation and examination of the patient, coordination of care with the medical staff and if applicable ref erring physicians, as well as creation of the medical record PQRS Narrative: Smoking Status Never smoker Hx Alcohol Use (MH) No Home Medications: Ambulatory Orders Atorvastatin [Lipitor] 80 mg PO HS 12/14/14 Losartan [Cozaar] 50 mg PO DAILY 12/14/14 Metoprolol Tartrate 25 mg PO DAILY 12/14/14 Pantoprazole Sodium 40 mg PO DAILY 12/14/14 Sertraline [Zoloft] 50 mg PO DAILY 12/14/14 Ezetimibe [Zetia] 10 mg PO HS 09/15/18 Rivaroxaban [Xarelto] 2.5 mg PO BID 10/25/18 Acetaminophen [Tylenol Arthritis] 1,300 mg PO DAILY PRN 08/01/20 Aspirin 81 mg PO DAILY 08/01/20 Ferrous Sulfate [Iron] 325 mg PO 1200 07/29/22 Controlled Substance Measures - Controlled Substance Measures Is patient prescribed a controlled substance at discharge?: No
== END ==
LOC: PNWHC3 10:51
PROVIDERS: ATTEND Specialist
DX: M51.36 Other intervertebral disc degeneration, lumbar region (principal); M47.816 Spondylosis without myelopathy or radiculopathy, lumbar region; G89.29 Other chronic pain
CPT/HCPCS: 99211

== ENCOUNTER → 2023-05-28 | Outpatient (CLI) | payer MEDICARE ==
[2023-05-28 09:27] VITALS: BP 138/78; PULSE 78; RESP 15; TEMP 98.6
--- NOTE | 2023-05-28 09:42 | XR ---
EXAM TYPE: LUMBAR SPINE X RAY SERIES COMPARISON: 07/14/2017 HISTORY: Pain TECHNIQUE: 4 views are submitted. FINDINGS: Alignment is anatomic. The pedicles are intact. The transverse processes are intact. There is curv ature the spine with multilevel degenerative disc disease. Severe changes L4-5. Multilevel facet arth ropathy most marked at L4-5 and L5-S1. Vascular calcifications noted and there are multiple left víctor l calculi. Right upper quadrant calcification could be related to gallstone or right renal calculus. IMPRESSION: 1. Multilevel degenerative disc disease and facet arthropathy most marked at L4-5. Suspect foraminal encroachment. 2. Left renal calculi. 3. Small gallstone or right kidney stone..
--- NOTE | 2023-05-28 09:44 | XR ---
EXAMINATION TYPE: XR cervical spine limited DATE OF EXAM: 05/28/2023 COMPARISON: NONE HISTORY: Pain TECHNIQUE: 3 views of the cervical spine FINDINGS: Calcifications in the soft tissue the neck likely related to carotid artery atherosclerotic disease. Post median sternotomy changes. There is multilevel severe degenerative disc disease with retrolisthesis noted at C3-4, C4-5 and C5-C 6. Posterior spondylosis and anterior spurring. Odontoid intact. Prevertebral soft tissue structures are within normal limits. Soft tissue ossification or calcification posteriorly. IMPRESSION: 1. Multilevel severe degenerative disc disease recommend follow-up MRI. 2. Evidence of extensive atherosclerotic change of the carotid artery on the left suspected recommend carotid Doppler ultrasound.
--- NOTE | 2023-05-28 14:30 | P.PAINPG ---
Objective - Vital Signs Vital signs: Intake & Output 05/27/23 05/28/23 05/28/23 18:59 06:59 18:59 Weight 90.718 kg PQRS Measure Charge Sheet Comment: A 76 yr old male with a history of severe and chronic LBP secondary to lumbar DDD and spondylosis with facet arthropathy without myelopathy presents today for evaluation. Pt underwent a BL RFA of the L3-L5 in Jul 2022 where states he experienced 95 % pain relief x 8 mo s/p procedure. Pain level is provoked at 8 /10 in intensity, constant, predominantly axial, localized in the lumbar spine, dull in character without shooting pain. Pain is provoked by weight bearing activity. Pain is alleviated with injections, PT x 6 wks in Spring 2022, physician guided stretches 5 times weekly since Spring 2022, alternating heat & ice, medications (Tyl), repositioning and rest. Oswestry axial pain score of 35. Pt also complains of lower cervical pain x 3 mo secondary to DDD. Pain is 6/10 in intensity, achy, predominantly axial w occasional radiation of pain to the BUEs. Pain is provoked by lifting. Pain is slightly alleviated w physician guided stretches 5 times weekly since 2022, medications, repositioning and rest. Cervical disability score of 22. Interventional procedures completed include BL RFA L3-L5 (Jul 2022) Patient is currently on Tyl Patient denies any side effects of the medication(s), denies excessive drowsiness or sleepiness, denies suicidal ideation and reports that the current pain medication is helping to control the pain and improve activities of daily living. Patient denies any motor or sensory deficits. Patient denies any fever or night sweats, denies any change in the bowel movements or urination. Physical Examination: -Constitutional: Cooperative. Not in acute distress . - Neurologic: Cranial nerve II to XII intact. No focal neurological deficits. - Psychatric: Alert & oriented x 3. Matching mood & appropriate affect. Judgment and insight intact. - Musculoskeletal: Cervical spine: Muscle bulk/ tone/ strength in the bilateral upper extremities normal Vertebral body tenderness to palpation over Spurling test positive over BL C6-C7 Distraction test positive Facet loading test positive TTP Thoracic spine Muscle bulk / tone/ strength in the bilateral paraspinal muscles normal Vertebral body tender to palpation over Facet loading test positive TTP Lumbar spine: Motor bulk/ tone/ strength lower extremities , thigh and legs : 5/5 Deep tendon reflexes : Normal Knee Jerk. Normal Ankle Jerk . Vertebral body tenderness to palpation over Lumbar Facet Loading Test positive BL L4-L5, L5-S1 Straight Leg Raise: positive at 30 degrees right side/ left side Gaenslen's Test positive Sacral spine : Severe tenderness over the Sacroiliac joint: right side / left side Range of motion: Flexion of the lumbar spine <60 degrees Range of motion: Extension of the lumbar spine <20 degrees Gaenslen's Test positive right side / left side Mirian test: positive right side / left side Thigh Thrust Test positive right side / left side Sacral Thrust Test positive right side / left side Imaging: CT noncontrast of the lumbar spine from June 2020 reviewed Assessment and plan: Chronic LBP secondary to lumbar DDD, spondylosis with facet arthropathy without myelopathy, Cervical DDD Recommendation of lumbar x-ray M51.36 and cervical x ray M50.30. Median additional testing if clinically indicated. Would benefit from repeat BL RFA L3-L5. Patient exhibited optimal pain relief with prior BL RFA L3-L5 procedure from July 2022. Risks, benefits of procedure discussed and patient verbalized understanding. Protocol for discontinuation/continuation of medications surrounding procedure discussed. All questions answered. I have spent less than 30 minutes on patient care today. Dr Garcia was available by phone for the evaluation of this patient. The time was used to review the medical records including relevant urine studies and Prescription history (MAPs), review of the available imaging, evaluation and examination of the patient, coordination of care with the medical staff and if applicable referring physicians, as well as creation of the medical record PQRS Narrative: Smoking Status Never smoker Hx Alcohol Use (MH) No Home Medications: Ambulatory Orders Atorvastatin [Lipitor] 80 mg PO HS 12/14/14 Losartan [Cozaar] 50 mg PO DAILY 12/14/14 Metoprolol Tartrate 25 mg PO DAILY 12/14/14 Pantoprazole Sodium 40 mg PO DAILY 12/14/14 Sertraline [Zoloft] 50 mg PO DAILY 12/14/14 Ezetimibe [Zetia] 10 mg PO HS 09/15/18 Rivaroxaban [Xarelto] 2.5 mg PO BID 10/25/18 Acetaminophen [Tylenol Arthritis] 1,300 mg PO DAILY PRN 08/01/20 Aspirin 81 mg PO DAILY 04/14/21 Ferrous Sulfate [Iron] 325 mg PO 1200 07/29/22 Controlled Substance Measures - Controlled Substance Measures Is patient prescribed a controlled substance at discharge?: No
== END ==
LOC: PNWHC3 08:05
PROVIDERS: ATTEND Specialist
DX: M51.37 Other intervertebral disc degeneration, lumbosacral region (principal); M47.817 Spondylosis without myelopathy or radiculopathy, lumbosacral region; M50.323 Other cervical disc degeneration at C6-C7 level; G89.29 Other chronic pain; N20.0 Calculus of kidney; K80.20 Calculus of gallbladder without cholecystitis without obstruction; Z79.01 Long term (current) use of anticoagulants; Z79.82 Long term (current) use of aspirin
CPT/HCPCS: 72040; 72100; G0463; 99211

== ENCOUNTER → 2023-06-03 | Outpatient (CLI) | payer MEDICARE ==
--- NOTE | 2023-06-03 19:27 | CT ---
EXAMINATION TYPE: CT lumbar spine wo con CT DLP: 1118.7 mGycm, Automated exposure control for dose reduction was used. DATE OF EXAM: 06/03/2023 2:37 PM COMPARISON: 07/03/2020.. CLINICAL INDICATION:Male, 77 years old with history of M51.36 OTHER INTERVERTEBRAL DISC DEGENERATION, LUM, Low back pain. No injury. TECHNIQUE: Multiple axial images were obtained from the midportion of T11 through the sacroiliac casandra nts. Soft tissue and bone windows in coronal and sagittal planes were obtained and reviewed. Contrast used: mL of , (None, if empty). Oral contrast used: (None, if empty). FINDINGS: Alignment: There are 5 lumbar type vertebral bodies within normal alignment. Bone: No evidence of fracture is identified. Multilevel degeneration changes with osteophyte formati on, disc space narrowing, facet joint arthropathy. Discs: T12-L1: No spinal canal or neural foraminal stenosis is identified. L1-L2: No spinal canal or neural foraminal stenosis is identified. L2-L3: Facet joint arthropathy and disc bulging result with mild spinal canal stenosis and mild bilat eral neural foraminal stenosis. L3-L4: Facet joint arthropathy and disc bulging result with mild spinal canal stenosis and moderate b ilateral neural foraminal stenosis. L4-L5: Facet joint arthropathy and disc bulging result with moderate spinal canal stenosis and modera te bilateral neural foraminal stenosis. L5-S1: No spinal canal or neural foraminal stenosis is identified. Other: Nonobstructing bilateral renal calculi measuring up to 11 mm on the left and 5 mm on the right . Right lateral bladder diverticula. Scattered colonic diverticulosis. Atherosclerosis of the arteria l vasculature. Extrarenal pelves bilaterally and peripelvic left renal cyst. IMPRESSION: 1. No evidence for spinal fracture. 2. Mild degeneration changes of the spine with spinal canal stenosis worse at L4-5 with at least mode rate stenosis. Neural foraminal stenosis worse at L3-L4 and L4-L5 with at least moderate right neural foraminal stenosis bilaterally.
== END | disposition home or self-care (01) ==
LOC: RADCTMAIN 13:33
PROVIDERS: ATTEND Specialist
DX: M99.73 Connective tissue and disc stenosis of intervertebral foramina of lumbar region (principal); M51.36 Other intervertebral disc degeneration, lumbar region; M47.816 Spondylosis without myelopathy or radiculopathy, lumbar region; M48.061 Spinal stenosis, lumbar region without neurogenic claudication
CPT/HCPCS: 72131

== ENCOUNTER → 2023-06-11 | Outpatient (CLI) | payer MEDICARE ==
[2023-06-11 10:36] VITALS: BP 124/79; PULSE 78; RESP 16; TEMP 98.4
--- NOTE | 2023-06-11 14:37 | P.PAINPG ---
PQRS Measure Charge Sheet Comment: A 77 yr old male with a history of severe and chronic LBP secondary to lumbar DDD and spondylosis with facet arthropathy without myelopathy presents today for evaluation. Pt underwent a BL RFA of the L3-L5 in Jul 2022 where states he experienced 95 % pain relief x 8-10 mo s/p procedure. Pain level is provoked at 8 /10 in intensity, constant, predominantly axial, localized in the lumbar spine, dull in character without shooting pain. Pain is provoked by weight bearing activity. Pain is alleviated with injections, PT x 6 wks in Spring 2022, physician guided stretches 5 times weekly since Spring 2022, alternating heat & ice, medications, repositioning and rest. Oswestry axial pain score of 35. Interventional procedures completed include BL RFA L3-L5 (Jul 2022) Patient is currently on Tyl Patient denies any side effects of the medication(s), denies excessive drowsiness or sleepiness, denies suicidal ideation and reports that the current pain medication is helping to control the pain and improve activities of daily living. Patient denies any motor or sensory deficits. Patient denies any fever or night sweats, denies any change in the bowel movements or urination. Physical Examination: -Constitutional: Cooperative. Not in acute distress . - Neurologic: Cranial nerve II to XII intact. No focal neurological deficits. - Psychatric: Alert & oriented x 3. Matching mood & appropriate affect. Judgment and insight intact. - Musculoskeletal: Cervical spine: Muscle bulk/ tone/ strength in the bilateral upper extremities normal Vertebral body tenderness to palpation over Spurling test positive Distraction test positive Facet loading test positive TTP Thoracic spine Muscle bulk / tone/ strength in the bilateral paraspinal muscles normal Vertebral body tender to palpation over Facet loading test positive TTP Lumbar spine: Motor bulk/ tone/ strength lower extremities , thigh and legs : 5/5 Deep tendon reflexes : Normal Knee Jerk. Normal Ankle Jerk . Vertebral body tenderness to palpation over Lumbar Facet Loading Test positive BL L4-L5, L5-S1 Straight Leg Raise: positive at 30 degrees right side/ left side Gaenslen's Test positive Sacral spine : Severe tenderness over the Sacroiliac joint: right side / left side Range of motion: Flexion of the lumbar spine <60 degrees Range of motion: Extension of the lumbar spine <20 degrees Gaenslen's Test positive right side / left side Mirian test: positive right side / left side Thigh Thrust Test positive right side / left side Sacral Thrust Test positive right side / left side Imaging: CT noncontrast of the lumbar spine from 06/03/23 reviewed Assessment and plan: Chronic LBP secondary to lumbar DDD, spondylosis with facet arthropathy without myelopathy, Cervical DDD Recommendation of BL RFA L3-L5. Patient exhibited optimal pain relief with prior BL RFA L3-L5 procedure from July 2022. Risks, benefits of procedure discussed and patient verbalized understanding. Protocol for discontinuation/continuation of medications surrounding procedure discussed. All questions answered. I have spent less than 30 minutes on patient care today. Dr Garcia was available by phone for the evaluation of this patient. The time was used to review the medical records including relevant urine studies and Prescription history (MAPs), review of the available imaging, evaluation and examination of the patient, coordination of care with the medical staff and if applicable referring physicians, as well as creation of the medical record PQRS Narrative: Smoking Status Never smoker Hx Alcohol Use (MH) No Home Medications: Ambulatory Orders Atorvastatin [Lipitor] 80 mg PO HS 12/14/14 Losartan [Cozaar] 50 mg PO DAILY 12/14/14 Metoprolol Tartrate 25 mg PO DAILY 12/14/14 Pantoprazole Sodium 40 mg PO DAILY 12/14/14 Sertraline [Zoloft] 50 mg PO DAILY 12/14/14 Ezetimibe [Zetia] 10 mg PO HS 09/15/18 Rivaroxaban [Xarelto] 2.5 mg PO BID 10/25/18 Acetaminophen [Tylenol Arthritis] 1,300 mg PO DAILY PRN 08/01/20 Aspirin 81 mg PO DAILY 08/01/20 Ferrous Sulfate [Iron] 325 mg PO 1200 07/29/22 Controlled Substance Measures - Controlled Substance Measures Is patient prescribed a controlled substance at discharge?: No
== END ==
LOC: PNWHC3 09:08
PROVIDERS: ATTEND Specialist
DX: M51.37 Other intervertebral disc degeneration, lumbosacral region (principal); M47.817 Spondylosis without myelopathy or radiculopathy, lumbosacral region; G89.29 Other chronic pain; M50.30 Other cervical disc degeneration, unspecified cervical region; Z79.82 Long term (current) use of aspirin
CPT/HCPCS: 99211

== ENCOUNTER 2023-07-24 12:40 | Day surgery (SDC) | payer MEDICARE ==
[2023-07-24] MEDS: LACTATED RINGERS 1,000 ML IV ONE (13:05)
[2023-07-24] MEDS ORDERED: LACTATED RINGERS 1,000 ML IV SCH (13:06)
[2023-07-24 13:33] VITALS: RESP 16; TEMP 97.5
[2023-07-24] MEDS ORDERED: ROPIVACAINE 5MG/ML 20ML VIAL ONE (13:47)
[2023-07-24] MEDS ORDERED: fentaNYL (PF) 50 MCG/ML 2 ML AMP ONE (13:47)
[2023-07-24] MEDS ORDERED: MIDAZOLAM 2 MG/2 ML VIAL ONE (13:47)
--- NOTE | 2023-07-24 14:28 | P.PCN ---
Description of Procedure: Preprocedure diagnosis. 1. Lumbar spondylosis with facet joint arthropathy without myelopathy. 2. Lumbar degenerative disc disease. Procedure diagnosis. 1. Lumbar spondylosis with facet joint arthropathy without myelopathy. Space 2. Lumbar degenerative disc disease. Procedure.Bilateral radiofrequency thermocoagulation L3, L4 and L5 medial branch, with fluoroscopic guidance (fluoroscopy images are available in the radiology department) (to Denervate the facet joint at bilateral L4- 5 and L5-S1 levels) Anesthesia. Moderate sedation with intravenous Versed 2 mg and fentanyl 100 g and local infiltration with ropivacaine 0.5%. Continuous verbal communication was maintained with patient. EBL minimal. Procedure indication. The patient with low back pain secondary to lumbar facet arthropathy who he had more than 50% relief of her pain with previous diagnostic lumbar medial branch block with local anesthetics.The patient was seen and identified in the preoperative area. Risks: Benefits, complications, including but not limited to risk of infection, bleeding, ALLERGIC reaction to the medications and no complete pain relief and alternatives were discussed with the patient, the patient admitted to proceed with the procedure and signed the consent. Procedure description/technique. Patient was taken to the OR and timeout was completed. The patient was placed in prone position on the procedure table. The lumbar area was prepped and draped in the usual sterile fashion. After injecting 5 ml of 1% Lidocaine subcutaneously,using AP and then oblique, lateral view of fluoroscopy, 18-gauge 100 mm radiofrequency cannula with a 10 mm active tip was advanced and guided by fluoroscopy at the junction of supirior articular process with RIGHT ala of the sacrum, transverse process of L4&L5. Each site then underwent positive sensory testing with 50 Hz and 0-1 V and negative motor testing at 2.5 Hz and 0-3 V with local stimulation but no radicular symptoms down the leg. Thereafter each sites underwent radiofrequency thermocoagulation at 80C for 90 seconds after injecting 1 mL of preservative- free 0.5% ropivacaine. Repeat radiofrequency ablation was done at each points after rotating the needle 180 with same setting. This same procedure was repeated twice on the LEFT side at the junction of s uperior articular process with ala of sacrum,transverse process of L4, L5 with the same settings after positive sensory,negative motor stimulation and infiltration of 1.0 ml 5% Ropivacaine at each site . RF needles were taken out. At the end of the procedure the skin was cleansed and Band-Aids were applied. Disposition patient tolerated the procedure well. No complication. She was placed in supine position and transferred to the recovery area in stable condition for observation and was discharged home from recovery room after meeting discharge criteria. Discharge instructions given to the patient by the staff. The patient were examined prior to discharge the patient will schedule a follow-up in the clinic in 2-4 weeks.
[2023-07-24] MEDS: IV FLUID CONTINUATION 1,000 ML IV ONE (14:31)
--- NOTE | 2023-07-24 14:37 | FL ---
EXAMINATION TYPE: FL guided pain mgmt statistic Intraoperative/procedural fluoroscopic services were provided. Total fluoroscopy time is 65.8 seconds with a total of 5 submitted images to PACS. Please s ee the operative/procedural note for further details. DAP: [id number] mGym2
[2023-07-24 14:54] VITALS: BP 131/63; PULSE 57
== END 2023-07-24 15:02 | disposition home or self-care (01) ==
LOC: ORPAIN 12:40
PROVIDERS: ATTEND Pain Medicine Interventional Pain Medicine
DX: M47.816 Spondylosis without myelopathy or radiculopathy, lumbar region (principal); M51.36 Other intervertebral disc degeneration, lumbar region; Z79.01 Long term (current) use of anticoagulants; Z79.82 Long term (current) use of aspirin
CPT/HCPCS: 64635; 64636 ×2; 99152; 99153; J2250; J3010; J2795

== ENCOUNTER → 2023-08-13 | Outpatient (CLI) | payer MEDICARE ==
[2023-08-13 09:27] VITALS: BP 132/70; PULSE 72; RESP 15; TEMP 98.5
--- NOTE | 2023-08-13 15:05 | P.PAINPG ---
PQRS Measure Charge Sheet Comment: A 77 yr old male with a history of severe and chronic LBP secondary to lumbar DDD and spondylosis with facet arthropathy without myelopathy presents today for evaluation s/p BL RFA of the L3-L5. Pt states he experienced 80 % pain relief s/p procedure. Pain level is provoked at 2 /10 in intensity, constant, predominantly axial, localized in the lumbar spine, dull in character without shooting pain. Pain is provoked by weight bearing activity. Pain is alleviated with injections, PT x 6 wks in Spring 2022, physician guided stretches 5 times weekly since Spring 2022, alternating heat & ice, medications, repositioning and rest. Oswestry axial pain score of 29. Interventional procedures completed include BL RFA L3-L5 (Jul 2022, Jul 2023) Patient is currently on Tyl Patient denies any side effects of the medication(s), denies excessive drowsiness or sleepiness, denies suicidal ideation and reports that the current pain medication is helping to control the pain and improve activities of daily living. Patient denies any motor or sensory deficits. Patient denies any fever or night sweats, denies any change in the bowel movements or urination. Physical Examination: -Constitutional: Cooperative. Not in acute distress . - Neurologic: Cranial nerve II to XII intact. No focal neurological deficits. - Psychatric: Alert & oriented x 3. Matching mood & appropriate affect. Judgment and insight intact. - Musculoskeletal: Cervical spine: Muscle bulk/ tone/ strength in the bilateral upper extremities normal Vertebral body tenderness to palpation over Spurling test positive Distraction test positive Facet loading test positive TTP Thoracic spine Muscle bulk / tone/ strength in the bilateral paraspinal muscles normal Vertebral body tender to palpation over Facet loading test positive TTP Lumbar spine: Motor bulk/ tone/ strength lower extremities , thigh and legs : 5/5 Deep tendon reflexes : Normal Knee Jerk. Normal Ankle Jerk . Vertebral body tenderness to palpation over Lumbar Facet Loading Test positive BL L4-L5, L5-S1 Straight Leg Raise: positive at 30 degrees right side/ left side Gaenslen's Test positive Sacral spine : Severe tenderness over the Sacroiliac joint: right side / left side Range of motion: Flexion of the lumbar spine <60 degrees Range of motion: Extension of the lumbar spine <20 degrees Gaenslen's Test positive right side / left side Mirian test: positive right side / left side Thigh Thrust Test positive right side / left side Sacral Thrust Test positive right side / left side Imaging: CT noncontrast of the lumbar spine from 06/03/23 reviewed Assessment and plan: Chronic LBP secondary to lumbar DDD, spondylosis with facet arthropathy without myelopathy, Cervical DDD Will manage residual pain and may RTC on an as needed basis. All questions answered. I have spent less than 30 minutes on patient care today. Dr Garcia was available by phone for the evaluation of this patient. The time was used to review the medical records including relevant urine studies and Prescription history (MAPs), review of the available imaging, evaluation and examination of the patient, coordination of care with the medical staff and if applicable referring physicians, as well as creation of the medical record PQRS Narrative: Smoking Status Never smoker Hx Alcohol Use (MH) No Home Medications: Ambulatory Orders Atorvastatin [Lipitor] 80 mg PO HS 12/14/14 Losartan [Cozaar] 50 mg PO DAILY 12/14/14 Metoprolol Tartrate 25 mg PO DAILY 12/14/14 Pantoprazole Sodium 40 mg PO DAILY 12/14/14 Sertraline [Zoloft] 50 mg PO DAILY 12/14/14 Ezetimibe [Zetia] 10 mg PO HS 09/15/18 Rivaroxaban [Xarelto] 2.5 mg PO BID 10/25/18 Acetaminophen [Tylenol Arthritis] 1,300 mg PO DAILY PRN 08/01/20 Aspirin 81 mg PO DAILY 08/01/20 Ferrous Sulfate [Iron] 325 mg PO 1200 07/29/22 Controlled Substance Measures - Controlled Substance Measures Is patient prescribed a controlled substance at discharge?: No
== END ==
LOC: PNWHC3 09:07
PROVIDERS: ATTEND Specialist
DX: M47.816 Spondylosis without myelopathy or radiculopathy, lumbar region (principal); M46.96 Unspecified inflammatory spondylopathy, lumbar region; M51.36 Other intervertebral disc degeneration, lumbar region; G89.29 Other chronic pain; M50.30 Other cervical disc degeneration, unspecified cervical region
CPT/HCPCS: 99211

== ENCOUNTER 2024-03-29 09:36 | Day surgery (SDC) | payer MEDICARE ==
[2024-03-28 09:09] VITALS: BMI 28.0
[2024-03-29 11:05] VITALS: TEMP 98.2
[2024-03-29] MEDS: LACTATED RINGERS 1,000 ML IV SCH (11:11)
[2024-03-29] MEDS: IV FLUID CONTINUATION 1,000 ML IV ONE (11:12)
[2024-03-29] MEDS ORDERED: PROPOFOL 10 MG/ML 20 ML VIAL IV ONE (12:24)
[2024-03-29] MEDS ORDERED: LIDOCAINE HCL/PF 20 MG/ML 10 ML AMP ONE (12:24)
--- NOTE | 2024-03-29 12:51 | P.PCN ---
Date of Procedure: 03/29/24 Procedure(s) Performed: Brief history: Patient is a pleasant 78-year-old white male scheduled for an elective upper endoscopy as well as colonoscopy as a part of evaluation of iron deficiency anemia. 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 Initially upper endoscopy was done. The Olympus GF 160 video endoscope was inserted inserted into the mouth and esophagus intubated without any difficulty and was gradually advanced into the stomach and duodenum and carefully examined. The bulb and second part of the duodenum appeared normal. The scope was then withdrawn into the stomach adequately insufflated with air and upon careful examination the antrum had linear areas of telangiectasias consistent with gastric antral vascular ectasia and plasma coagulation was performed. Mucosa of the body, cardia and fundus appeared normal. The scope was then withdrawn into the esophagus. Moderate size hiatal hernia noted. The GE junction was located at 40 cm to the incisors. It appeared regular with no erythema erosions or ulcerations. Rest of the esophagus appeared normal. Patient tolerated the procedure well. At this time the patient continued to remain sedation. Initial digital rectal examination was normal. Olympus CF 160 video colonoscope was then inserted into the rectum and gradually advanced to the cecum without any difficulty. Careful examination was performed as the scope was gradually being withdrawn. The prep was excellent. The cecum, ascending colon, normal. The transverse colon there was a 3 mm and 4 mm polyp removed by cold biopsy. In the descending colon there was a 5 mm polyp removed by cold biopsy. Rest of the transverse colon, descending colon,. Scattered left-sided diverticulosis seen. Sigmoid colon and rectum appeared normal. Retroflexion was performed in the rectum and grade 2 internal hemorrhoids were noted. Patient tolerated the procedure well. Impression: 1. 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 Colonoscopy revealed 4 mm and 5 mm transverse colon polyp and a 3 mm descending colon polyp polyps which were removed by cold biopsy. Scattered sigmoid diverticulosis and grade 2 internal hemorrhoids Recommendations: Findings of this examination were discussed with the patient as well as his family. He was advised to follow the biopsy results. Resume Xarelto today. Follow-up in the office in 2 to 3 weeks. If the biopsy confirms the presence of Groves's esophagus he can have repeat upper endoscopy in 3 years
[2024-03-29 12:57] VITALS: RESP 16
[2024-03-29 13:30] VITALS: BP 161/97; PULSE 55
== END 2024-03-29 13:48 | disposition home or self-care (01) ==
LOC: ORWHC2ENDO 09:36
PROVIDERS: ATTEND Internal Medicine Gastroenterology
DX: D12.4 Benign neoplasm of descending colon (principal); D12.3 Benign neoplasm of transverse colon; D50.9 Iron deficiency anemia, unspecified; K22.70 Barrett's esophagus without dysplasia; K64.1 Second degree hemorrhoids; K57.30 Diverticulosis of large intestine without perforation or abscess without bleeding; K44.9 Diaphragmatic hernia without obstruction or gangrene; K31.819 Angiodysplasia of stomach and duodenum without bleeding; I10 Essential (primary) hypertension; E78.5 Hyperlipidemia, unspecified; I25.10 Atherosclerotic heart disease of native coronary artery without angina pectoris; K21.9 Gastro-esophageal reflux disease without esophagitis; I73.9 Peripheral vascular disease, unspecified; Z79.01 Long term (current) use of anticoagulants; Z95.5 Presence of coronary angioplasty implant and graft; Z90.49 Acquired absence of other specified parts of digestive tract; Z79.82 Long term (current) use of aspirin; Z79.899 Other long term (current) drug therapy; Z98.890 Other specified postprocedural states; Z85.46 Personal history of malignant neoplasm of prostate
CPT/HCPCS: 88305; 45380; 43239; 43270; J2003; J2704

== ENCOUNTER 2024-06-24 12:03 | Day surgery (SDC) | payer MEDICARE ==
[2024-06-22 12:57] VITALS: BMI 27.3
[2024-06-24 12:52] VITALS: TEMP 97.3
[2024-06-24] MEDS: LACTATED RINGERS 1,000 ML IV SCH (12:55)
[2024-06-24] MEDS: IV FLUID CONTINUATION 1,000 ML IV ONE (12:56)
[2024-06-24] MEDS ORDERED: MIDAZOLAM 2 MG/2 ML VIAL ONE (13:38)
[2024-06-24] MEDS ORDERED: methylPREDNISolone ACETATE 40 MG/ML 1 ML VIAL ONE (13:38)
[2024-06-24] MEDS ORDERED: fentaNYL (PF) 50 MCG/ML 2 ML AMP ONE (13:38)
[2024-06-24] MEDS ORDERED: ROPIVACAINE 5MG/ML 20ML VIAL ONE (13:38)
--- NOTE | 2024-06-24 14:03 | P.PCN ---
Date of Procedure: 06/24/24 Procedure(s) Performed: PREOPERATIVE DIAGNOSIS: 1-Lumbar Spondylosis with Facet Arthropathy without myelopathy. 2- Lumber degenerative disc disease. POSTOPERATIVE DIAGNOSIS: 1- Lumbar Spondylosis with Facet Arthropathy without myelopathy. 2- Lumber degenerative disc disease. PROCEDURES : Bilateral Radiofrequency thermocoagulation, L3 , L4 , and L5 medial branch, with fluoroscopic guidance (fluoroscopy images available in the radiology department) ( to denervate the facet joint at bilateral L4-5 ,and L5-S1 levels ). ANESTHESIA: Moderate sedation with Versed 2 mg and fentanyl 100 mcg. (Sedation start time 13:31 , end time 14:00 ) EBL: Minimal PROCEDURE INDICATION: The patient with low back pain secondary to lumbar facet arthropathy who had more than 50% relief of her pain with previous diagnostic lumbar medial branch block with bupivacaine. PROCEDURE DESCRIPTION / TECHNIQUE: The patient was seen and identified in the preoperative area. Risks, benefits, complications, including but not limited to risk of infection ,bleeding , allergic reactions to the medications and no complete pain releife , and alternatives were discussed with the patient, the patient agreed to proceed with the procedure and signed the consent. IV was started. Vital signs remained stable throughout the procedure. Patient was taken to the OR and time out was completed. The patient was placed in the prone position on the procedure table. The lumber area was prepped and draped in the usual sterile fashion. . Vital signs were closely monitored during the procedure .IV sedation was used during the procedure to decrease patients anxiety. Using AP and then oblique fluoroscopy, the ``eye of the Obey dog corresponding to the connection between the superior and transverse articular processes of right L3, L4, and L5 were identified, marked, and localized with 1% lidocaine. Subsequently, a 18 -to ( VENUM ) radiofrequency cannula with a 10-mm active tip was advanced guided by fluoroscopy to each of the``eyes of the Obey dog at right L3, L4, and L5. Each site then underwent sensory testing at 50 Hz and 0 to 1 volt and motor testing at 2.5 Hz and 0 to 3 volt with local stimulation, but no radicular symptoms down the legs. Thereafter each sites underwent radiofrequency thermocoagulation at 80 degrees celsius for 90 seconds after injecting 0.5 ml of PF Ropivacaine 1ml, then after the thermocoagulation done , 1 ml of the block solution containing Kenalog 20 mg and 3 ml of Ropivacaine 0.5% was injected at the right L3 , L4 , and L5 , levels after negative aspiration of CSF and blood and with no paresthesias. Cannulas were retracted while injecting lidocaine 1% until the needle is out. The same procedure was repeated at the level of Left L3, L4, and L5 levels. At the end of the procedure, the skin was cleansed and bandages were applied. COMPLICATIONS: No acute complications. DISPOSITION / PLANS: The patient was placed in a supine position and transferred to the recovery area in a stable condition for observation and was discharged from the recovery room after meeting discharge criteria. Home discharge instructions given to the patient by the staff. The patient was reexamined prior to discharge. The patient will schedule a follow up in the clinic in 2-4 weeks.
[2024-06-24] MEDS: IV FLUID CONTINUATION 600 ML IV ONE (14:09)
--- NOTE | 2024-06-24 14:16 | FL ---
EXAMINATION TYPE: FL guided pain mgmt statistic DATE OF EXAM: 06/24/2024 CLINICAL INDICATION: Male, 78 years old with history of PAIN; [facility], TECHNIQUE: Fluoroscopy. COMPARISON: None. FINDINGS: Fluoroscopic guidance was provided during pain relief procedure performed by Dr. Garcia . A total of 10.6 seconds of fluoroscopic time was utilized during the procedure and 6 spot images a re acquired. Images acquired shows needle localization at several levels in the lumbar spine. Total DAP: 0.2351 mGym2 IMPRESSION: As Above. [facility], , 06/24/2024 2:13 PM
[2024-06-24 15:16] VITALS: BP 112/78; PULSE 78; RESP 18
== END 2024-06-24 15:17 | disposition home or self-care (01) ==
LOC: ORPAIN 12:03
PROVIDERS: ATTEND Specialist
DX: M47.816 Spondylosis without myelopathy or radiculopathy, lumbar region (principal); M51.369 Other intervertebral disc degeneration, lumbar region without mention of lumbar back pain or lower extremity pain; I25.10 Atherosclerotic heart disease of native coronary artery without angina pectoris; I73.9 Peripheral vascular disease, unspecified; Z79.01 Long term (current) use of anticoagulants
CPT/HCPCS: 64635; 64636; J2250; J3010; J2795; J1010

== ENCOUNTER → 2024-07-11 | Outpatient (CLI) | payer MEDICARE ==
[2024-07-11 13:51] VITALS: BP 110/65; PULSE 66; RESP 16
--- NOTE | 2024-07-11 14:48 | P.PAINPG ---
PQRS Measure Charge Sheet Comment: A 78 yr old male with a history of severe and chronic LBP secondary to radiculopathy, spondylosis with facet arthropathy without myelopathy presents today for evaluation s/p BL RFA L4-L5/ L5-S1. Pt states he experienced 80% pain relief s/p procedure. Pain level is provoked at 3 /10 in intensity, constant, p redominantly axial, localized in the lumbar spine, dull in character without shooting pain. Pain is provoked by weight bearing activity. Pain is alleviated with injections, PT x 6 wks in Spring 2022, physician guided stretches 5 times weekly since Spring 2022, alternating heat & ice, medications, repositioning and rest. Interventional procedures completed include BL RFA L3-L5 x3 (08/10, 08/11, 07/12) Patient is currently on Tyl Arth Patient denies any side effects of the medication(s), denies excessive drowsiness or sleepiness, denies suicidal ideation and reports that the current pain medication is helping to control the pain and improve activities of daily living. Patient denies any motor or sensory deficits. Patient denies any fever or night sweats, denies any change in the bowel movements or urination. Physical Examination: -Constitutional: Cooperative. Not in acute distress . - Neurologic: Cranial nerve II to XII intact. No focal neurological deficits. - Psychatric: Alert & oriented x 3. Matching mood & appropriate affect. Judgment and insight intact. - Musculoskeletal: Cervical spine: Muscle bulk/ tone/ strength in the bilateral upper extremities normal Vertebral body tenderness to palpation over Spurling test positive Distraction test positive Facet loading test positive TTP Thoracic spine Muscle bulk / tone/ strength in the bilateral paraspinal muscles normal Vertebral body tender to palpation over Facet loading test positive TTP Lumbar spine: Motor bulk/ tone/ strength lower extremities , thigh and legs : 5/5 Deep tendon reflexes : Normal Knee Jerk. Normal Ankle Jerk . Vertebral body tenderness to palpation over Lumbar Facet Loading Test positive BL L4-L5, L5-S1 Straight Leg Raise: positive at 30 degrees right side/ left side Gaenslen's Test positive Sacral spine : Severe tenderness over the Sacroiliac joint: right side / left side Range of motion: Flexion of the lumbar spine <60 degrees Range of motion: Extension of the lumbar spine <20 degrees Gaenslen's Test positive right side / left side Mirian test: positive right side / left side Thigh Thrust Test positive right side / left side Sacral Thrust Test positive right side / left side Imaging: CT noncontrast of the lumbar spine from 06/03/23 reviewed Assessment and plan: Chronic LBP secondary to radiculopathy, spondylosis with facet arthropathy without myelopathy, Cervical radiculopathy Will manage residual pain and may RTC on an as needed basis. All questions answered. I have spent less than 30 minutes on patient care today. Dr Garcia was available by phone for the evaluation of this patient. The time was used to review the medical records including relevant urine studies and Prescription history (MAPs), review of the available imaging, evaluation and examination of the patient, coordination of care with the medical staff and if applicable referring physicians, as well as creation of the medical record PQRS Narrative: Smoking Status Never smoker Hx Alcohol Use (MH) No Home Medications: Ambulatory Orders Atorvastatin [Lipitor] 80 mg PO HS 12/14/14 Losartan [Cozaar] 50 mg PO DAILY 12/14/14 Pantoprazole Sodium 40 mg PO DAILY 12/14/14 Sertraline [Zoloft] 50 mg PO DAILY 12/14/14 Ezetimibe [Zetia] 10 mg PO HS 09/15/18 Rivaroxaban [Xarelto] 2.5 mg PO BID 10/25/18 Aspirin 81 mg PO DAILY 08/01/20 Ferrous Sulfate [Iron] 325 mg PO 1200 07/29/22 Controlled Substance Measures - Controlled Substance Measures Is patient prescribed a controlled substance at discharge?: No
== END ==
LOC: PNWHC3 12:33
PROVIDERS: ATTEND Specialist
DX: M47.816 Spondylosis without myelopathy or radiculopathy, lumbar region (principal); G89.29 Other chronic pain
CPT/HCPCS: 99211